=== PATIENT | female | born 1945 | race Caucasian/White ===

== ENCOUNTER 2018-12-08 16:27 | Inpatient (IN) | payer MEDICARE, SELFPAY ==
[2018-12-08 16:47] VITALS: BP 161/72; PULSE 87; RESP 16; TEMP 37; O2SAT 96; BMI 42.5
[2018-12-08 16:52] VITALS: BMI 42.7
--- NOTE | 2018-12-08 17:08 | PCM.CONS.GEN ---
Problem List (1) Hyperlipidemia Status: Chronic (2) Type 2 diabetes mellitus Status: Chronic (3) Status post coronary artery bypass graft Status: Chronic (4) CAD (coronary artery disease) Status: Chronic (5) Hypertension Status: Chronic Reason for Consult Date of Consultation: 12/08/18 Reason for Consultation: Medical management. History of Present Illness: The patient is a 73 year old F with past medical history as mentioned above admitted to the inpatient rehabilitation unit after she suffered acute traumatic left femur fracture and underwent open reduction internal fixation and I am seeing this patient in consultation for medical management. Patient sustained acute traumatic left femur fracture due to mechanical fall and she underwent open reduction and internal fixation on December 03, 2018 and subsequently, she was admitted to the inpatient rehabilitation unit for physical and occupational therapy. At this time, her left thigh and left hip pain is manageable. She denies any chest pain or shortness of breath. She denies any other significant symptoms. She has history of type 2 diabetes mellitus which seems to be under control with insulin and metformin. She has history of CAD status post CABG long time ago and she has been stable on aspirin, statins, beta-blockers and SUDHAKAR inhibitors. She has a history of hyperlipidemia and she has been on Lipitor. At this time, her blood pressure slightly elevated, other vital signs are stable. Past Medical History Past Medical History (Chronic Problems): Chronic Problems Hyperlipidemia (Chronic) Type 2 diabetes mellitus (Chronic) Status post coronary artery bypass graft (Chronic) CAD (coronary artery disease) (Chronic) Hypertension (Chronic) Allergies No Known Allergies Allergy (Verified 12/08/18 16:59) Home Medications: Ambulatory Orders Medication Instructions Recorded Aspirin E.C. 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 Dyspnea, Syncope Respiratory: Denies: Cough, Pleuritic Pain, Shortness of Breath, Sputum production, Wheezing Gastrointestinal: Denies: Abdominal Pain, Constipation, Nausea, Vomiting Genitourinary: Denies: Dysuria, Frequency, Hematuria Musculoskeletal: Reports: Leg Pain, - - Left thigh pain.. Denies: Arm Pain, Back Pain Skin: Reports: Dryness, Rash Neurological: Denies: Balance problems, Double vision, Change in Speech, Slurred speech, Confusion, Headaches, Numbness Psychiatric: Denies: Anxiety, Depression Endocrine: Denies: Change in Body Habitus, Polydipsia - Physical Exam General: Alert, Oriented x3, Cooperative, No apparent distress HEENT: Atraumatic, PERRLA, EOMI, Normocephalic Oral: Moist Mucosa, No Gingival or Mucosal Lesions/ Ulcerations Neck: Supple, No JVD, Negative Carotid Bruits, Trachea Midline, Thyroid Normal Size and Texture Lungs: Clear to auscultation, Normal air movement, No rhonchi, No wheeze, No rales Cardiovascular: Regular rate, Regular Rhythm, Normal S1, Normal S2, PMI Normal Abdomen: Bowel Sounds Present, Soft, Non Tender, Non-Distended, No Hepato-splenomegaly, Obese Extremities: No clubbing, No cyanosis, No edema Skin: No rashes, No breakdown, Incision Lymphatic: No Cervical, Supraclavicular, or Inguinal Adenopathy Neurological: Cranial nerves II-XII grossly intact, Motor Exam 5/5 strength throughout Psych/Mental Status: Normal Affect, Appropriate, Alert and oriented to time, place, person, mood and affect Weight: 241 lb Body Mass Index (BMI) 42.7 Assessment/Plan This is a 73 years old female patient admitted to the inpatient rehabilitation unit after she suffered acute traumatic left femur fracture status post open reduction internal fixation and I am seeing this patient in consultation for medical management. #1 acute traumatic left femur fracture: Status post open reduction and internal fixation that was done on December 03, 2018. At this time, her left thigh and left hip pain is manageable. She is on Sumpter PRN for pain. Her vital signs are stable. Plan for PT OT according to rehab team. #2 CAD status post CABG: Stable, no acute issues. Continue aspirin, statins, metoprolol and lisinopril. #3 type 2 diabetes mellitus: ADA diet, Accu-Cheks, insulin sliding scale, continue home doses of Lantus insulin and metformin. #4 hypertension: Blood pressure slightly elevated, plan to monitor, continue lisinopril and metoprolol. #5 hyperlipidemia: Continue statins. #6 DVT prophylaxis: Subcu Lovenox. This note was generated with [employer] dictation software. It may contain incorrect words, spelling, and punctuation that were not noted in checking the note before signing. Code Visit Inpatient E&M: 95251 Init Hosp L2
[2018-12-08 17:18] VITALS: BMI 42.7
[2018-12-08 17:45] LABS: Bedside Glucose 160 mg/dL (70-110)
[2018-12-08] MEDS: Pantoprazole Sodium 20 MG Tablet PO (19:23)
[2018-12-08 19:25] VITALS: BP 156/72; PULSE 74; RESP 16; TEMP 36.6; O2SAT 96
--- NOTE | 2018-12-08 19:32 | PCM.HP.COS ---
History of Present Illness Date of Admission: 12/08/18 Chief Complaint: Debility secondary to s/p left femur ORIF The patient is a 73 year old F with a H hypertension, diabetes, hyperlipidemia, GERD, depression, diabetes type 2, CAD, morbid obesity admitted to inpatient rehab on December 08, 2018 for debility secondary to status post left femur ORIF, for greater of 3 hours of therapy daily with a goal of returning back home at or near her prior level of functional dependence. On December 01, 2018 patient fell in her kitchen while putting the dishes away, patient did not hit head or no LOC. She was admitted to [facility] x-ray results of the left femur and knee demonstrated a community distal femur fracture extending from the diaphysis down to the metaphyseal region and the CT of the left knee re-demonstrates comminuted distal femur fracture, there does not appear to be an intra-articular extension. Prior to surgery cardiology was consulted due to patient's known coronary artery disease status post CABG in 1996. An EKG was done and showed an evidence of an inferior posterior RI, likely old. Troponin level and a repeat EKG was completed which did not show any dynamic changes. Patient was cleared for surgery and on December 04, 2018 Dr. Ruggiero performed open treatment left supracondylar femur fracture with plate and screw fixation. Post-op patient became nauseated and vomiting, anti-emetics and bland diet was ordered an x-ray of abdomen 2 views ordered, impression: findings are most compatible with mildly dynamic ileus and on December 07, 2018 chest x-ray 1 view ordered impression: no acute radiographic findings. Patient lives in a 1 level first-floor set up apartment with spouse and was independent with driving, mobility and ADLs prior to her surgery. Past Medical History Past Medical History (Chronic Problems): Chronic Problems (Last Updated 12/08/18 @ 20:25 by Yvrose Richards NP-C) Hypertension (Chronic) CAD (coronary artery disease) (Chronic) Status post coronary artery bypass graft (Chronic) Type 2 diabetes mellitus (Chronic) Hyperlipidemia (Chronic) GERD (gastroesophageal reflux disease) (Chronic) Morbid obesity with body mass index (BMI) of 40.0 to 44.9 in adult (Chronic) Depression (Chronic) Hx of CABG (Chronic) 1996 Medical History: Medical History (Last Updated 12/08/18 @ 20:16 by WILEY Ivey) Cataract (lens) fragments in eye following cataract surgery, bilateral H59.023 Allergies No Known Allergies Allergy (Verified 12/08/18 16:59) Home Medications: Ambulatory Orders Medication Instructions Recorded Aspirin E.C. [Ecotrin] 81 mg PO DAILY@0800 12/08/18 Atorvastatin Calcium [Lipitor] 40 mg PO QHS 12/08/18 Citalopram [Celexa] 40 mg PO DAILY 12/08/18 Insulin Glargine,Hum.rec.anlog 20 unit SQ QHS 12/08/18 [Toujeo Solostar] Lisinopril 5 mg PO DAILY 12/08/18 Metformin(XR) [Glucophage Xr] 2,000 mg PO QHS 12/08/18 Metoprolol(XL)Succ [Toprol Xl 25 mg PO DAILY 12/08/18 (Beta Mally)] Polyethylene Glycol 3350 [Miralax] 17 gm PO DAILY 12/08/18 Surgical History: Surgical History (Last Updated 12/08/18 @ 20:25 by WILEY Ivey) Hx of CABG (Chronic) Z95.1 1996 History of lumpectomy of left breast Z98.890 Surgical History: cataract, coronary bypass surgery - 1996, - - left breast biopsy, Left femur ORIF Psychiatric History: Depression 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 Denies: Abdominal Pain, Constipation Genitourinary: Denies: Dysuria, Frequency, Hesitancy Musculoskeletal: Reports: Joint stiffness - Left leg, Joint swelling, Joint Tenderness Neurological: Denies: Numbness, Tingling, Focal weakness Psychiatric: Reports: Depression - denies thoughts or feeling of suicidal ideations, nor a plan Endocrine: Denies: Change in Body Habitus, Heat/ Cold Intolerance Hematologic/ Lymphatic: Denies: Easy Bruising, Easy Bleeding VTE Information - Inpt Only VTE Present on Admission: No VTE Mechan Device Prophylaxis: SCD's, Knee High NOLBERTO Hose - RLE only d/t brace and acewrap to LLE VTE Pharm Prophylaxis ordered?: Yes - Physical Exam General: Alert, Oriented x3, Cooperative HEENT: Atraumatic, PERRLA Oral: Moist Mucosa Neck: Supple, No JVD Lungs: Clear to auscultation, Normal air movement Cardiovascular: Regular rate, Regular Rhythm Abdomen: Bowel Sounds Present, Soft, Non Tender, Obese Extremities: No clubbing, No cyanosis, No edema, Capillary Refill Less than 3 Seconds Skin: Incision - Left upper leg, incisions covered with DSD and no active drng or redness noted Musculoskeletal: Tenderness - Left upper extremity s/p left femur ORIF Neurological: Cranial nerves II-XII grossly intact, Deep Tendon Reflexes 2+/4 and Symmetrical, Neuro grossly intact Psych/Mental Status: Normal Affect, Appropriate, Alert and oriented to time, place, person, mood and affect Vital Signs Temp Pulse Resp BP Pulse Ox 98 F 74 16 156/72 H 96 12/08/18 19:25 12/08/18 19:25 12/08/18 19:25 12/08/18 19:25 12/08/18 19:25 Oxygen Delivery Method Room Air Weight: 109.316 kg Body Mass Index (BMI) 42.7 POC Glucose 12/08/18 17:40 POC Glucose 160 H Assessment/Plan The patient is a 73 year old F with a H hypertension, diabetes, hyperlipidemia, GERD, depression, diabetes type 2, CAD, morbid obesity admitted to inpatient rehab on December 08, 2018 for debility secondary to status post left femur ORIF, for greater of 3 hours of therapy daily with a goal of returning back home at or near her prior level of functional dependence. On December 01, 2018 patient fell in her kitchen while putting the dishes away, patient did not hit head or no LOC. She was admitted to [facility] x-ray results of the left femur and knee demonstrated a community distal femur fracture extending from the diaphysis down to the metaphyseal region and the CT of the left knee re-demonstrates comminuted distal femur fracture, there does not appear to be an intra-articular extension. Prior to surgery cardiology was consulted due to patient's known coronary artery disease status post CABG in 1996. An EKG was done and showed an evidence of an inferior posterior RI, likely old. Troponin level and a repeat EKG was completed which did not show any dynamic changes. Patient was cleared for surgery and on December 04, 2018 Dr. Ruggiero performed open treatment left supracondylar femur fracture with plate and screw fixation. Post-op patient became nauseated and vomiting, anti-emetics and bland diet was ordered an x-ray of abdomen 2 views ordered, impression: findings are most compatible with mildly dynamic ileus and on December 07, 2018 chest x-ray 1 view ordered impression: no acute radiographic findings. Patient lives in a 1 level first-floor set up apartment with spouse and was independent with driving, mobility and ADLs prior to her surgery. Plan - PT for mobility - OT for ADLs - Bowel protocol - Analgesics as needed - Fall precautions - DVT prophylaxis lovenox 30 mg SQ daily as directed by ortho, knee high teds and SCDs to RLE only d/t LLE sumanth wrap and brace - S/P left femur ORIF change drsg to incision daily with DSD and prn, ice prn, PWB 25 % ROM 0-60 degrees in bed with knee immobilizer off, wear knee immobilizer for transfer and when out of bed. - HTN on metoprolol, lisinopril - GERD on protonix 20 mg - DM type 2 on metformin, levemir, and humalog S.C., monitor accu-checks AC & HS - Depression on celexa - Hyperlipidemia on lipitor - CAD s/p CABG on aspirin, metoprolol and lisinopril - Nausea: zofran prn (EKG prior to hospitalization and was given prior to this admission with celexa) - Further medical management per hospitalist recommendation, hospitalist consult - F/U with PCP and Orthopedics
--- NOTE | 2018-12-08 19:36 | HP.PCM.COS_ITS ---
History of Present Illness Date of Admission: 12/08/18 Chief Complaint: Debility secondary to s/p left femur ORIF The patient is a 73 year old F with a H hypertension, diabetes, hyperlipidemia, GERD, depression, diabetes type 2, CAD, morbid obesity admitted to inpatient rehab on December 08, 2018 for debility secondary to status post left femur ORIF, for greater of 3 hours of therapy daily with a goal of returning back home at or near her prior level of functional dependence. On December 01, 2018 patient fell in her kitchen while putting the dishes away, patient did not hit head or no LOC. She was admitted to [facility] x-ray results of the left femur and knee demonstrated a community distal femur fracture extending from the diaphysis down to the metaphyseal region and the CT of the left knee re-demonstrates comminuted distal femur fracture, there does not appear to be an intra-articular extension. Prior to surgery cardiology was consulted due to patient's known coronary artery disease status post CABG in 1996. An EKG was done and showed an evidence of an inferior posterior NV, santana sarabia Troponin level and a repeat EKG was completed which did not show any dynamic changes. Patient was cleared for surgery and on December 04, 2018 Dr. Ruggiero performed open treatment left supracondylar femur fracture with plate and screw fixation. Post-op patient became nauseated and vomiting, anti-emetics and bland diet was ordered an x-ray of abdomen 2 views ordered, impression: findings are most compatible with mildly dynamic ileus and on December 07, 2018 chest x-ray 1 view ordered impression: no acute radiographic findings. Patient lives in a 1 level first-floor set up apartment with spouse and was independent with driving, mobility and ADLs prior to her surgery. Past Medical History Past Medical History (Chronic Problems): Chronic Problems (Last Updated 12/08/18 @ 20:25 by Yvrose Richards NP-Gladys) Hypertension (Chronic) CAD (coronary artery disease) (Chronic) Status post coronary artery bypass graft (Chronic) Type 2 diabetes mellitus (Chronic) Hyperlipidemia (Chronic) GERD (gastroesophageal reflux disease) (Chronic) Morbid obesity with body mass index (BMI) of 40.0 to 44.9 in adult (Chronic) Depression (Chronic) Hx of CABG (Chronic) 1996 Medical History: Medical History (Last Updated 12/08/18 @ 20:16 by WILEY Ivey) Cataract (lens) fragments in eye following cataract surgery, bilateral H59.023 Allergies No Known Allergies Allergy (Verified 12/08/18 16:59) Home Medications: Ambulatory Orders Medication Instructions Recorded Aspirin E.C. [Ecotrin] 81 mg PO DAILY@0800 12/08/18 Atorvastatin Calcium [Lipitor] 40 mg PO QHS 12/08/18 Citalopram [Celexa] 40 mg PO DAILY 12/08/18 Insulin Glargine,Hum.rec.anlog 20 unit SQ QHS 12/08/18 [Toujeo Solostar] Lisinopril 5 mg PO DAILY 12/08/18 Metformin(XR) [Glucophage Xr] 2,000 mg PO QHS 12/08/18 Metoprolol(XL)Succ [Toprol Xl 25 mg PO DAILY 12/08/18 (Beta Mally)] Polyethylene Glycol 3350 [Miralax] 17 gm PO DAILY 12/08/18 Surgical History: Surgical History (Last Updated 12/08/18 @ 20:25 by WILEY Ivey) Hx of CABG (Chronic) Z95.1 1996 History of lumpectomy of left breast Z98.890 Surgical History: cataract, coronary bypass surgery - 1996, - - left breast biopsy, Left femur ORIF Psychiatric History: Depression 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 Denies: Abdominal Pain, Constipation Genitourinary: Denies: Dysuria, Frequency, Hesitancy Musculoskeletal: Reports: Joint stiffness - Left leg, Joint swelling, Joint Tenderness Neurological: Denies: Numbness, Tingling, Focal weakness Psychiatric: Reports: Depression - denies thoughts or feeling of suicidal ideations, nor a plan Endocrine: Denies: Change in Body Habitus, Heat/ Cold Intolerance Hematologic/ Lymphatic: Denies: Easy Bruising, Easy Bleeding VTE Information - Inpt Only VTE Present on Admission: No VTE Mechan Device Prophylaxis: SCD's, Knee High NOLBERTO Hose - RLE only d/t brace and acewrap to LLE VTE Pharm Prophylaxis ordered?: Yes - Physical Exam General: Alert, Oriented x3, Cooperative HEENT: Atraumatic, PERRLA Oral: Moist Mucosa Neck: Supple, No JVD Lungs: Clear to auscultation, Normal air movement Cardiovascular: Regular rate, Regular Rhythm Abdomen: Bowel Sounds Present, Soft, Non Tender, Obese Extremities: No clubbing, No cyanosis, No edema, Capillary Refill Less than 3 Seconds Skin: Incision - Left upper leg, incisions covered with DSD and no active drng or redness noted Musculoskeletal: Tenderness - Left upper extremity s/p left femur ORIF Neurological: Cranial nerves II-XII grossly intact, Deep Tendon Reflexes 2+/4 and Symmetrical, Neuro grossly intact Psych/Mental Status: Normal Affect, Appropriate, Alert and oriented to time, place, person, mood and affect Vital Signs Temp Pulse Resp BP Pulse Ox 98 F 74 16 156/72 H 96 12/08/18 19:25 12/08/18 19:25 12/08/18 19:25 12/08/18 19:25 12/08/18 19:25 Oxygen Delivery Method Room Air Weight: 109.316 kg Body Mass Index (BMI) 42.7 POC Glucose 12/08/18 17:40 POC Glucose 160 H Assessment/Plan The patient is a 73 year old F with a H hypertension, diabetes, hyperlipidemia, GERD, depression, diabetes type 2, CAD, morbid obesity admitted to inpatient rehab on December 08, 2018 for debility secondary to status post left femur ORIF, for greater of 3 hours of therapy daily with a goal of returning back home at or near her prior level of functional dependence. On December 01, 2018 patient fell in her kitchen while putting the dishes away, patient did not hit head or no LOC. She was admitted to [facility] x-ray results of the left femur and knee demonstrated a community distal femur fracture extending from the diaphysis down to the metaphyseal region and the CT of the left knee re-demonstrates comminuted distal femur fracture, there does not appear to be an intra-articular extension. Prior to surgery cardiology was consulted due to patient's known coronary artery disease status post CABG in 1996. An EKG was done and showed an evidence of an inferior posterior NV, likely old. Troponin level and a repeat EKG was completed which did not show any dynamic changes. Patient was cleared for surgery and on December 04, 2018 Dr. Ruggiero performed open treatment left supracondylar femur fracture with plate and screw fixation. Post-op patient became nauseated and vomiting, anti-emetics and bland diet was ordered an x-ray of abdomen 2 views ordered, impression: findings are most compatible with mildly dynamic ileus and on December 07, 2018 chest x-ray 1 view ordered impression: no acute radiographic findings. Patient lives in a 1 level first-floor set up apartment with spouse and was independent with driving, mobility and ADLs prior to her surgery. Plan - PT for mobility - OT for ADLs - Bowel protocol - Analgesics as needed - Fall precautions - DVT prophylaxis lovenox 30 mg SQ daily as directed by ortho, knee high teds and SCDs to RLE only d/t LLE sumanth wrap and brace - S/P left femur ORIF change drsg to incision daily with DSD and prn, ice prn, PWB 25 % ROM 0-60 degrees in bed with knee immobilizer off, wear knee immobilizer for transfer and when out of bed. - HTN on metoprolol, lisinopril - GERD on protonix 20 mg - DM type 2 on metformin, levemir, and humalog S.C., monitor accu-checks AC & HS - Depression on celexa - Hyperlipidemia on lipitor - CAD s/p CABG on aspirin, metoprolol and lisinopril - Nausea: zofran prn (EKG prior to hospitalization and was given prior to this admission with celexa) - Further medical management per hospitalist recommendation, hospitalist consult - F/U with PCP and Orthopedics
[2018-12-08 21:06] LABS: Bedside Glucose 185 mg/dL (70-110)
[2018-12-08] MEDS: Atorvastatin Calcium 40 MG Tablet PO (22:00)
[2018-12-08] MEDS: Ondansetron ODT 4 MG Tablet PO (22:29)
[2018-12-09] MEDS: Enoxaparin 30 MG/0.3 ML Syringe SC (06:12)
[2018-12-09 07:00] VITALS: BP 120/74; PULSE 98; RESP 18; TEMP 36.8; O2SAT 94
[2018-12-09 07:02] LABS: Absolute Lymphocyte Count 1.22 X10^3/ul (0.83-4.51); Absolute Neutrophil Count 7.9 X10^3/uL (2.0-7.7); Basophil# 0.03 X10^3/uL; Basophil% 0.3 % (0-1); Eosinophil# 0.36 X10^3/uL; Eosinophils% 3.3 % (0-5); Hematocrit 32.5 % (37-47); Hemoglobin 10.6 g/dl (12.0-15.0); Lymphocyte # 1.22 X10^3/ul (4.0); Mean Corp Hgb Conc 32.6 g/gl (32-36); Mean Corpuscular Hgb 29.9 pg (27.0-32.0); Mean Corpuscular Volume 91.5 fL (81-99); Mean Platelet Vol. 9.6 fl (6.2-12.0); Monocyte# 1.35 X10^3/uL; Monocyte% 12.2 % (0-10); Neutrophil # 7.94 X10^3/uL (2.7-7.7); Neutrophil % 71.8 % (47-70); Platelet Count 281 K/mm3 (150-450); RBC Distribution Width CV 14.5 % (11.6-14.6); RBC Distribution Width SD 47.6 fl (35.1-43.9); Red Blood Count 3.55 M/mm3 (4.2-5.4); White Blood Count 11.1 K/mm3 (4.4-11.0)
[2018-12-09 07:05] LABS: POSITIVE COUNT NO; POSITIVE DIFFERENTIAL NO; POSITIVE MORPHOLOGY NO
[2018-12-09 07:14] LABS: BUN 9 mg/dL (7-18); Creatinine, Serum 0.76 mg/dL (0.55-1.02); Estimated Creatinine Clearance 42.07 ml/min; Glucose 171 mg/dL (74-106)
[2018-12-09 07:15] LABS: ALB/GLOB Ratio 0.8 RATIO (0.9-2.4); AST(SGOT) 29 U/L (15-37); Alanine Aminotransfer ALT/SGPT 27 U/L (13-56); Albumin, Serum 2.6 g/dL (3.2-5.0); Alkaline Phosphatase 66 U/L (45-117); Anion Gap 8 (5-15); BUN/Creat Ratio 11.9 RATIO (10-20); Calcium,Total 8.4 mg/dL (8.5-10.1); Chloride 104 mmol/L (98-107); EST Glomerular Filtration Rate 80 mL/min (>60); Est Glom Filt Rate - Afr Amer 96 mL/min (>60); Globulin 3.4 g/dL (2.2-4.2); Potassium 3.2 mmol/L (3.5-5.1); Sodium Level 141 mmol/L (136-145)
[2018-12-09 08:22] VITALS: BP 120/74; PULSE 98
[2018-12-09] MEDS: Metoprolol(XL)Succ 25 MG Tablet PO (08:22)
[2018-12-09] MEDS: Insulin Lispro 100 UNIT/ML INSULN.PEN SC ×4 (08:22→19:58)
[2018-12-09] MEDS: Citalopram 40 MG TABLET PO (08:22)
[2018-12-09] MEDS: Lisinopril 5 MG Tablet PO (08:22)
[2018-12-09] MEDS: Aspirin E.C. 81 MG Tablet PO (08:22)
[2018-12-09] MEDS: Pantoprazole Sodium 20 MG Tablet PO (08:23)
[2018-12-09 09:41] LABS: Bedside Glucose 165 mg/dL (70-110)
[2018-12-09 09:41] LABS: Bedside Glucose 174 mg/dL (70-110)
[2018-12-09 12:15] LABS: Bedside Glucose 239 mg/dL (70-110)
--- NOTE | 2018-12-09 12:18 | PCM.PN.HOSP ---
Subjective: Patient was seen and examined. She has diarrhea, about 4x, no fever or chills. Objective: Physical Exam General: Alert, Oriented x3, Cooperative, No apparent distress, morbidly obese HEENT: Atraumatic, PERRLA, EOMI, Normocephalic Oral: Moist Mucosa, No Gingival or Mucosal Lesions/ Ulcerations Neck: Supple, No JVD, Negative Carotid Bruits, Trachea Midline, Thyroid Normal Size and Texture Lungs: Clear to auscultation, Normal air movement, No rhonchi, No wheeze, No rales Cardiovascular: Regular rate, Regular Rhythm, Normal S1, Normal S2, PMI Normal Abdomen: Bowel Sounds Present, Soft, Non Tender, Non-Distended, No Hepato-splenomegaly, Obese Extremities: No clubbing, No cyanosis, No edema Skin: No rashes, No breakdown, Incision Lymphatic: No Cervical, Supraclavicular, or Inguinal Adenopathy Neurological: Cranial nerves II-XII grossly intact, Motor Exam 5/5 strength throughout Psych/Mental Status: Normal Affect, Appropriate, Alert and oriented to time, place, person, mood and affect Vitals/I&O's: Vital Signs Temp Pulse Resp BP Pulse Ox 98.2 F 98 18 120/74 94 12/09/18 07:00 12/09/18 08:22 12/09/18 07:00 12/09/18 08:22 12/09/18 07:00 Oxygen Delivery Method Room Air Weight: 109.316 kg Body Mass Index (BMI) 42.7 Intake and Output for Last 24 Hours 12/07/18 12/08/18 12/09/18 23:59 23:59 23:59 Intake Total 360 / 360 Balance 360 / 360 Laboratory Results 12/08/18 17:40: POC Glucose 160 H 12/08/18 20:56: POC Glucose 185 H 12/09/18 01:12: POC Glucose 165 H 12/09/18 06:31: POC Glucose 174 H 12/09/18 06:40: WBC 11.1 H, RBC 3.55 L, Hgb 10.6 L, Hct 32.5 L, MCV 91.5, MCH 29.9, MCHC 32.6, RDW 14.5, RDW Differential 47.6 H, Plt Count 281, MPV 9.6, Immature Gran % (Auto) 1.400 H, Neut % (Auto) 71.8 H, Lymph % (Auto) 11.0 L, [place] % (Auto) 12.2 H, Eos % (Auto) 3.3, Baso % (Auto) 0.3, Absolute Neuts (auto) 7.9 H, Absolute Lymphs (auto) 1.22, Total Counted Not Reportable 12/09/18 06:40: Sodium 141, Potassium 3.2 L, Chloride 104, Carbon Dioxide 29.0, Anion Gap 8, BUN 9, Creatinine 0.76, Estim Creat Clear Calc 42.07, Est GFR (MDRD) Af Amer 96, Est GFR (MDRD) Non-Af 80, BUN/Creatinine Ratio 11.9, Glucose 171 H, Calcium 8.4 L, Total Bilirubin 1.20 H, AST 29, ALT 27, Alkaline Phosphatase 66, Total Protein 6.0 L, Albumin 2.6 L, Globulin 3.4, Albumin/Globulin Ratio 0.8 L 12/09/18 12:08: POC Glucose 239 H Current Medications Acetaminophen (Tylenol) 650 mg PO Q6H PRN PRN PRN Reason: Mild Pain (0-3/10)/Headache Hydrocodone Bitart/Acetaminophen ([place] 5mg-325mg) 1 - 2 tablet PO Q6H PRN PRN PRN Reason: MOD-SEVERE PAIN (4-10/10) Aspirin (Ecotrin) 81 mg PO DAILY@0800 [facility] Last Admin: 12/09/18 08:22 Dose: 81 mg Atorvastatin Calcium (Lipitor) 40 mg PO QHS [facility] Last Admin: 12/08/18 22:00 Dose: 40 mg Bisacodyl (Dulcolax) 10 mg RECTAL .PRN X 1 PRN PRN Reason: Constipation Citalopram Hydrobromide (Celexa) 40 mg PO DAILY [facility] Last Admin: 12/09/18 08:22 Dose: 40 mg Enoxaparin Sodium (Lovenox) 30 mg SC DAILY@0600 [facility] Last Admin: 12/09/18 06:12 Dose: 30 mg Insulin Glargine (Lantus (Bk)) 20 units [facility] Last Admin: 12/08/18 22:29 Dose: 20 u Insulin Human Lispro (Humalog Kwikpen (Bk)) 0 unit SC [facility]; Protocol Last Admin: 12/09/18 08:22 Dose: 1 u Lisinopril (Zestril) 5 mg PO DAILY [facility] Last Admin: 12/09/18 08:22 Dose: 5 mg Lorazepam (Ativan) 0.5 mg PO QHS PRN PRN PRN Reason: Insomnia Magnesium Hydroxide (Milk Of Magnesia) 30 ml PO .PRN X 1 PRN PRN Reason: Constipation Metformin HCl (Glucophage Xr) 2,000 mg PO QHS [facility] Last Admin: 12/08/18 22:29 Dose: 2,000 mg Metoprolol Succinate (Toprol Xl (Beta Mally)) 25 mg PO DAILY [facility] Last Admin: 12/09/18 08:22 Dose: 25 mg Ondansetron HCl (Zofran Odt) 4 mg PO Q8H PRN PRN PRN Reason: nausea and vomitting Last Admin: 12/08/18 22:29 Dose: 4 mg Pantoprazole Sodium (Protonix) 20 mg PO DAILY [facility] Last Admin: 12/09/18 08:23 Dose: 20 mg Polyethylene Glycol (Miralax) 17 gm PO DAILY [facility] Last Admin: 12/09/18 08:21 Dose: Not Given Senna/Docusate Sodium (Senokot-S, Gregoria-Colace) 2 tablet PO BID [facility] Last Admin: 12/09/18 10:05 Dose: Not Given Medical Necessity - Tobacco Use Smoking Status: Never smoker Assessment/Plan This is a 73 years old female patient admitted to the inpatient rehabilitation unit after she suffered acute traumatic left femur fracture status post open reduction internal fixation admitted for acute rehab. 1. Acute diarrhea, need to rule out c. diff, will hold metformin 2. Hypokalemia, replaced 3. Acute traumatic left femur fracture, status post open reduction and internal fixation, therapy ongoing 4. CAD status post CABG: Stable, no acute issues. Continue aspirin, statins, metoprolol and lisinopril. 5. Type 2 diabetes mellitus, BS slightly uncontrolled, on ADA diet, Accu-Cheks, insulin sliding scale, continue home doses of Lantus insulin. Will hold metformin 6. Hypertension, controlled, on lisinopril and metoprolol. 7. Hyperlipidemia, statins. 8. DVT prophylaxis - Lovenox SC Code Visit Inpatient E&M: [id number] [facility] L2
[2018-12-09 14:28] LABS: Hemoglobin A1c 6.8 % (4.2-6.3)
[2018-12-09 16:51] LABS: Bedside Glucose 159 mg/dL (70-110)
[2018-12-09] MEDS: Atorvastatin Calcium 40 MG Tablet PO (19:59)
[2018-12-09 20:04] VITALS: BP 130/66; PULSE 94; RESP 18; TEMP 36.9; O2SAT 92
[2018-12-09 20:16] LABS: Bedside Glucose 181 mg/dL (70-110)
[2018-12-10] MEDS: Enoxaparin 30 MG/0.3 ML Syringe SC (05:45)
[2018-12-10 06:26] LABS: Bedside Glucose 183 mg/dL (70-110)
[2018-12-10 07:00] VITALS: BP 120/70; PULSE 89; RESP 18; TEMP 36.7; O2SAT 94
[2018-12-10 08:21] VITALS: BP 120/70; PULSE 89
[2018-12-10] MEDS: Pantoprazole Sodium 20 MG Tablet PO (08:21)
[2018-12-10] MEDS: Insulin Lispro 100 UNIT/ML INSULN.PEN SC ×4 (08:21→20:22)
[2018-12-10] MEDS: Citalopram 40 MG TABLET PO (08:21)
[2018-12-10] MEDS: Lisinopril 5 MG Tablet PO (08:21)
[2018-12-10] MEDS: Metoprolol(XL)Succ 25 MG Tablet PO (08:21)
[2018-12-10] MEDS: Aspirin E.C. 81 MG Tablet PO (08:21)
[2018-12-10 11:55] LABS: Bedside Glucose 291 mg/dL (70-110)
--- NOTE | 2018-12-10 12:48 | PCM.PN.HOSP ---
Subjective: Patient was seen and examined. No more diarrhea. Blood sugar slightly uncontrolled. Pain is controlled. Denies any fever or chills. Therapy is going well Objective: Physical Exam General: Alert, Oriented x3, Cooperative, No apparent distress, morbidly obese HEENT: Atraumatic, PERRLA, EOMI, Normocephalic Oral: Moist Mucosa, No Gingival or Mucosal Lesions/ Ulcerations Neck: Supple, No JVD, Negative Carotid Bruits, Trachea Midline Lungs: Clear to auscultation Cardiovascular: Regular rate, Regular Rhythm, Normal S1, Normal S2, PMI Normal Abdomen: Bowel Sounds Present, Soft, Non Tender, Non-Distended, No Hepato-splenomegaly, Obese Extremities: No clubbing, No cyanosis, Karlos wrap to left lower extremity, bruise over the left lower thigh, dressing intact over left knee Skin: see under extremity Lymphatic: No Cervical, Supraclavicular, or Inguinal Adenopathy Neurological: Cranial nerves II-XII grossly intact, Motor Exam 5/5 strength throughout Psych/Mental Status: Normal Affect, Appropriate, Alert and oriented to time, place, person, mood and affect Vitals/I&O's: Vital Signs Temp Pulse Resp BP Pulse Ox 98.0 F 89 18 120/70 94 12/10/18 07:00 12/10/18 08:21 12/10/18 07:00 12/10/18 08:21 12/10/18 07:00 Oxygen Delivery Method Room Air Weight: 109.316 kg Body Mass Index (BMI) 42.7 Intake and Output for Last 24 Hours 12/08/18 12/09/18 12/10/18 23:59 23:59 23:59 Intake Total 840 / 840 720 / 720 Balance 840 / 840 720 / 720 Microbiology Past 72 Hours 12/09/18 16:40 Stool C. difficile DNA Amplification - Final Laboratory Results 12/09/18 06:40: Hemoglobin A1c 6.8 H 12/09/18 16:42: POC Glucose 159 H 12/09/18 19:57: POC Glucose 181 H 12/10/18 06:18: POC Glucose 183 H 12/10/18 11:47: POC Glucose 291 H Current Medications Acetaminophen (Tylenol) 650 mg PO Q6H PRN PRN PRN Reason: Mild Pain (0-3/10)/Headache Hydrocodone Bitart/Acetaminophen ([place] 5mg-325mg) 1 - 2 tablet PO Q6H PRN PRN PRN Reason: MOD-SEVERE PAIN (4-1010) Aspirin (Ecotrin) 81 mg PO DAILY@0800 [facility] Last Admin: 12/10/18 08:21 Dose: 81 mg Atorvastatin Calcium (Lipitor) 40 mg PO QHS [facility] Last Admin: 12/09/18 19:59 Dose: 40 mg Bisacodyl (Dulcolax) 10 mg RECTAL .PRN X 1 PRN PRN Reason: Constipation Citalopram Hydrobromide (Celexa) 40 mg PO DAILY [facility] Last Admin: 12/10/18 08:21 Dose: 40 mg Enoxaparin Sodium (Lovenox) 30 mg SC DAILY@0600 [facility] Last Admin: 12/10/18 05:45 Dose: 30 mg Insulin Glargine (Lantus (Bkc)) 20 units SC QHS [facility] Last Admin: 12/09/18 19:58 Dose: 20 u Insulin Human Lispro (Humalog Kwikpen (Bkc)) 0 unit SC [facility]; Protocol Last Admin: 12/10/18 08:21 Dose: 2 u Lisinopril (Zestril) 5 mg PO DAILY [facility] Last Admin: 12/10/18 08:21 Dose: 5 mg Lorazepam (Ativan) 0.5 mg PO QHS PRN PRN PRN Reason: Insomnia Magnesium Hydroxide (Milk Of Magnesia) 30 ml PO .PRN X 1 PRN PRN Reason: Constipation Metformin HCl (Glucophage Xr) 2,000 mg PO QHS [facility] Last Admin: 12/09/18 13:54 Dose: Not Given Metoprolol Succinate (Toprol Xl (Beta Mally)) 25 mg PO DAILY [facility] Last Admin: 12/10/18 08:21 Dose: 25 mg Ondansetron HCl (Zofran Odt) 4 mg PO Q8H PRN PRN PRN Reason: nausea and vomitting Last Admin: 12/08/18 22:29 Dose: 4 mg Pantoprazole Sodium (Protonix) 20 mg PO DAILY [facility] Last Admin: 12/10/18 08:21 Dose: 20 mg Polyethylene Glycol (Miralax) 17 gm PO DAILY [facility] Last Admin: 12/10/18 06:59 Dose: Not Given Senna/Docusate Sodium (Senokot-S, Gregoria-Colace) 2 tablet PO BID [facility] Last Admin: 12/10/18 06:59 Dose: Not Given Medical Necessity - Tobacco Use Smoking Status: Never smoker Assessment/Plan This is a 73 years old female patient admitted to the inpatient rehabilitation unit after she suffered acute traumatic left femur fracture status post open reduction internal fixation admitted for acute rehab. 1. Acute diarrhea, C. difficile ruled out, likely secondary to metformin side effect, will continue to monitor off metformin 2. Hypokalemia, resolved 3. Acute traumatic left femur fracture, status post open reduction and internal fixation, therapy ongoing 4. CAD status post CABG, on aspirin, statins, metoprolol and lisinopril. 5. Type 2 diabetes mellitus, BS slightly uncontrolled, on ADA diet, Accu-Cheks, insulin sliding scale, Increase Lantus to 24 units QHS, continue to hold metformin 6. Hypertension, controlled, on lisinopril and metoprolol. 7. Hyperlipidemia, statins. 8. DVT prophylaxis - Lovenox SC Code Visit Inpatient E&M: [id number] Subs Hosp L2
--- NOTE | 2018-12-10 13:04 | PCM.RU.PYE ---
Admission Information Status Changes from Prescreening?: No changes Identified Actual Problem List:: Falls, Skin Intergrity, Pain, ALteration in Cmfrt, Bowel, Incontinence, Alteration in Sleep, Mobility Impaired, Self Care Deficit, Diabetes, Hyperglycemia, Ineffect.D/C Plan r/t Psy Potential Problem List:: DVT, Bleeding, Infection, UTI, Aspiration, Falls, Skin Integrity, Depression Risk of Complications DVT: LMWH, NOLBERTO Hose, Sequential Compression Device Bleeding: Monitor Lab Values, Nursing to Teach Precautions for anti-coagulation therapy., Wound, if applicable, to be assessed every shift., Stroke patients assessed for lethargy or change in status. Infection: Clinical Staff to Monitor for S/S of infection:, S/S of infection include fever, redness, warmth, etc. Urinary Tract Infection: Monitor for frequency, burning, discomfort, or incontinence., Nursing will obtain urine sample for urinalysis and C&S when ordered. Aspiration: Clinical staff will monitor for coughing, drooling, congestion., Speech will evaluate swallowing and dsyphasia., Nursing will monitor patient swallowing during meals. Falls: Patient will be evaluated for Fall Precautions, Patient will be placed on Fall Precautions as indicated per protocol. Skin Breakdown: Nursing will assess skin daily using assessment tool., Nursing will place on Skin Breakdown Precautions as indicated. Pain: Clinical staff will assess patient's pain level per protocol., Medications will be given, if needed, and the pain level reassessed., Other methods: Massage, distraction, decrease stimulus, etc. used PRN. Plan of Care Patient requires physician specializing in physical medicine and rehab oversight to provide close medical supervision of rehab issues including: Pain Management, Sleep Problems, Bowel and Bladder, Medical and co-morbidity Management, DVT prophylaxis, Rehabilitation Leadership, Coordination of treatment team Patient needs Physical Therapy: For a minimum of 1 hour, At least 5 out of 7 days Patient needs Physical Therapy to improve:: Mobility, Mobility, Mobility, Strengthening, Transfers, Stretching, ROM, Endurance, Stairs, Gait, Balance Patient needs Occupational Therapy: For a minimum of 1 hour, At least 5 out of 7 days Patient needs Occupational Therapy to improve ADL's incl.: Eating, Grooming, Bathing, Dressing, Toileting, Toilet transfers, Community Reintegration, Higher functioning activities, Household tasks, Adaptive Equipment, Splinting, Other activities as determined Patient requires 28/02 Rehabilitation Nursing for: Pain Issues, Identifying and preventing risk factors, Monitoring and reporting current medical conditions, Assisting with ambulation, transfer, and all ADL's, Teaching patients about disease process and medications, Family teaching, Providing safe environment, Bowel and Bladder Issues, Skin integrity, Medication Management Patient needs Conference Services Director/ Case Management for: Discharge Planning, Arranging Home Equipment or Services, Family Interventions Patient needs Dietary and Nutrition Services for: Adequate Nutrition, Nutritional Supplements, Nutritional Education Goals Patient will remain: free from falls, or injury at time of discharge. Patient will perform bed mobility at: MOD I level of assist. Patient will complete transfers from bed to chair at: MOD I level of assist. Patient will ambulate: 100 feet, with MOD I assist, with LRD Patient will complete upper body dressing at: MOD I level of assist. Patient will complete lower body dressing at: MOD I level of assist. Patient will complete toileting at: MOD I level of assist. Patient will perform bathing at: MOD I level of assist. Patient will complete grooming at: MOD I level of assist. Patient will complete home management skills at: MOD I level of assist. Patient will achieve: 12 stairs, at MOD I assist Patient will have pain level of: of 3 or less Patient's skin will: remain intact, free from infection. Patient will receive: adequate nutrition. Discharge Planning Pt Prognosis for Sig. Practical Improv. w/in Reasonable Time: Good Anticipated D/C Destination: Home with Outpt Therapy Was Preadmission Assessment Accurate?: Yes
[2018-12-10 13:36] LABS: Anion Gap 5 (5-15); BUN 13 mg/dL (7-18); BUN/Creat Ratio 15.3 RATIO (10-20); Calcium,Total 8.5 mg/dL (8.5-10.1); Chloride 104 mmol/L (98-107); Creatinine, Serum 0.85 mg/dL (0.55-1.02); EST Glomerular Filtration Rate 70 mL/min (>60); Est Glom Filt Rate - Afr Amer 84 mL/min (>60); Estimated Creatinine Clearance 49.49 ml/min; Glucose 290 mg/dL (74-106); Potassium 3.5 mmol/L (3.5-5.1); Sodium Level 139 mmol/L (136-145)
[2018-12-10 13:43] VITALS: O2SAT 95
[2018-12-10 17:05] LABS: Bedside Glucose 238 mg/dL (70-110)
[2018-12-10 20:21] LABS: Bedside Glucose 195 mg/dL (70-110)
[2018-12-10] MEDS: Atorvastatin Calcium 40 MG Tablet PO (20:23)
[2018-12-10 20:41] VITALS: BP 139/73; PULSE 64; RESP 18; TEMP 36.6; O2SAT 95
[2018-12-10 21:06] LABS: Bedside Glucose 190 mg/dL (70-110)
[2018-12-11] MEDS: Enoxaparin 30 MG/0.3 ML Syringe SC (05:09)
[2018-12-11 06:45] LABS: Bedside Glucose 212 mg/dL (70-110)
[2018-12-11 06:46] VITALS: O2SAT 94
[2018-12-11 07:10] VITALS: BP 137/71; PULSE 93; RESP 18; TEMP 36.8; O2SAT 93
[2018-12-11] MEDS: Aspirin E.C. 81 MG Tablet PO (07:57)
[2018-12-11] MEDS: Citalopram 40 MG TABLET PO (07:57)
[2018-12-11] MEDS: Insulin Lispro 100 UNIT/ML INSULN.PEN SC ×4 (07:57→21:42)
[2018-12-11] MEDS: Lisinopril 5 MG Tablet PO (07:57)
[2018-12-11 07:58] VITALS: BP 137/71; PULSE 93
[2018-12-11] MEDS: Pantoprazole Sodium 20 MG Tablet PO (07:58)
[2018-12-11] MEDS: Metoprolol(XL)Succ 25 MG Tablet PO (07:58)
--- NOTE | 2018-12-11 11:06 | PCM.PN.NEU ---
Subjective: No issues overnight per nursing. Per nursing no further diarrhea and per hospitalist direction metformin on hold. Nursing reported excoriation under bilateral breasts and to groin area. Patient denies pain at this time and is tolerating therapy well. - Physical Exam General: Alert, Oriented x3, Cooperative HEENT: Atraumatic, PERRLA Oral: Moist Mucosa Neck: Supple, No JVD Lungs: Clear to auscultation, Normal air movement, No rhonchi Cardiovascular: Regular rate, Regular Rhythm Abdomen: Bowel Sounds Present, Soft, Non Tender, Obese Extremities: No clubbing, No cyanosis, Edema - mild to left upper thigh Skin: Incision - joe and DSD intact, no active drng or redness noted, Excoriated - Under bilateral breasts and groin Musculoskeletal: Tenderness - s/p left femur ORIF Neurological: Cranial nerves II-XII grossly intact, Deep Tendon Reflexes 2+/4 and Symmetrical, Neuro grossly intact Psych/Mental Status: Normal Affect, Appropriate, Alert and oriented to time, place, person, mood and affect Vital Signs Temp Pulse Resp BP Pulse Ox 98.2 F 93 18 137/71 H 93 12/11/18 07:10 12/11/18 07:58 12/11/18 07:10 12/11/18 07:58 12/11/18 07:10 Oxygen Delivery Method Room Air Weight: 109.316 kg Body Mass Index (BMI) 42.7 Intake and Output for Last 24 Hours 12/09/18 12/10/18 12/11/18 23:59 23:59 23:59 Intake Total 840 / 840 720 / 720 Output Total 300 / 300 Balance 840 / 840 420 / 420 Microbiology Past 72 Hours 12/09/18 16:40 C. difficile DNA Amplification - Final Stool Laboratory Tests Past 24 Hrs 12/10/18 13:15 Sodium 139 Potassium 3.5 Chloride 104 Carbon Dioxide 30.0 Anion Gap 5 BUN 13 Creatinine 0.85 Estim Creat Clear Calc 49.49 Est GFR (MDRD) Af Amer 84 Est GFR (MDRD) Non-Af 70 BUN/Creatinine Ratio 15.3 Glucose 290 H Calcium 8.5 POC Glucose 12/11/18 12/10/18 12/10/18 06:29 20:59 20:17 POC Glucose 212 H 190 H 195 H 12/10/18 12/10/18 16:51 11:47 POC Glucose 238 H 291 H Medical Necessity - Tobacco Use Smoking Status: Never smoker Assessment/Plan The patient is a 73 year old F with a PMH hypertension, diabetes, hyperlipidemia, GERD, depression, diabetes type 2, CAD, morbid obesity admitted to inpatient rehab on December 08, 2018 for debility secondary to status post left femur ORIF, for greater of 3 hours of therapy daily with a goal of returning back home at or near her prior level of functional dependence. On December 01, 2018 patient fell in her kitchen while putting the dishes away, patient did not hit head or no LOC. She was admitted to [facility] x-ray results of the left femur and knee demonstrated a community distal femur fracture extending from the diaphysis down to the metaphyseal region and the CT of the left knee re-demonstrates comminuted distal femur fracture, there does not appear to be an intra-articular extension. Prior to surgery cardiology was consulted due to patient's known coronary artery disease status post CABG in 1996. An EKG was done and showed an evidence of an inferior posterior TN, likely old. Troponin level and a repeat EKG was completed which did not show any dynamic changes. Patient was cleared for surgery and on December 04, 2018 Dr. Ruggiero performed open treatment left supracondylar femur fracture with plate and screw fixation. Post-op patient became nauseated and vomiting, anti-emetics and bland diet was ordered an x-ray of abdomen 2 views ordered, impression: findings are most compatible with mildly dynamic ileus and on December 07, 2018 chest x-ray 1 view ordered impression: no acute radiographic findings. Patient lives in a 1 level first-floor set up apartment with spouse and was independent with driving, mobility and ADLs prior to her surgery. Plan - PT for mobility - OT for ADLs - Bowel protocol - Analgesics as needed - Fall precautions - DVT prophylaxis lovenox 30 mg SQ daily as directed by ortho, knee high teds and SCDs to RLE only d/t LLE sumanth wrap and brace - S/P left femur ORIF change drsg to incision daily with DSD and prn, ice prn, PWB 25 % ROM 0-60 degrees in bed with knee immobilizer off, wear knee immobilizer for transfer and when out of bed. D/C joe on 12/15/2018 - HTN on metoprolol, lisinopril - GERD on protonix 20 mg - DM type 2 on levemir, and humalog S.C., monitor accu-checks AC & HS, metformin on hold d/t previous diarrhea -follow hospitalist recommendations for management - Acute diarrhea 12/09/2018 C-Diff negative, metformin on hold - Depression on celexa - Hyperlipidemia on lipitor - CAD s/p CABG on aspirin, metoprolol and lisinopril - Nausea: zofran prn (EKG prior to hospitalization and was given prior to this admission with celexa) - Further medical management per hospitalist recommendation, hospitalist consult - F/U with PCP and Orthopedics
[2018-12-11 11:46] LABS: Bedside Glucose 196 mg/dL (70-110)
--- NOTE | 2018-12-11 12:48 | PCM.PN.HOSP ---
Subjective: The patient is sitting comfortably on the bed. Patient had left femur surgery status post ORIF by Dr. Ruggiero in [facility]. Vitals/I&O's: Vital Signs Temp Pulse Resp BP Pulse Ox 98.2 F 93 18 137/71 H 93 12/11/18 07:10 12/11/18 07:58 12/11/18 07:10 12/11/18 07:58 12/11/18 07:10 Oxygen Delivery Method Room Air Weight: 241 lb 0.008 oz Body Mass Index (BMI) 42.7 Intake and Output for Last 24 Hours 12/09/18 12/10/18 12/11/18 23:59 23:59 23:59 Intake Total 840 / 840 720 / 720 Output Total 300 / 300 Balance 840 / 840 420 / 420 General: Alert, Oriented x3, Cooperative HEENT: Atraumatic, PERRLA, EOMI, Normocephalic Neck: Supple, No JVD, Negative Carotid Bruits Lungs: Clear to auscultation, Normal air movement, No rhonchi, No wheeze, No rales Cardiovascular: Regular rate, Regular Rhythm, Normal S1, Normal S2, Murmur - Systolic murmur over aortic region Abdomen: Bowel Sounds Present, Soft, Non Tender, Non-Distended Extremities: No edema, Capillary Refill Less than 3 Seconds Skin: No rashes, No breakdown Musculoskeletal: No Tenderness to Palpation of Joints or Extremities, Arthritic Changes, - - Left thigh surgical joe intact. Neurological: Cranial nerves II-XII grossly intact, Deep Tendon Reflexes 2+/4 and Symmetrical, Neuro grossly intact Psych/Mental Status: Normal Affect, Appropriate Microbiology Past 72 Hours 12/09/18 16:40 Stool C. difficile DNA Amplification - Final Laboratory Results 12/10/18 13:15: Sodium 139, Potassium 3.5, Chloride 104, Carbon Dioxide 30.0, Anion Gap 5, BUN 13, Creatinine 0.85, Estim Creat Clear Calc 49.49, Est GFR (MDRD) Af Amer 84, Est GFR (MDRD) Non-Af 70, BUN/Creatinine Ratio 15.3, Glucose 290 H, Calcium 8.5 12/10/18 16:51: POC Glucose 238 H 12/10/18 20:17: POC Glucose 195 H 12/10/18 20:59: POC Glucose 190 H 12/11/18 06:29: POC Glucose 212 H 12/11/18 11:28: POC Glucose 196 H Current Medications Acetaminophen (Tylenol) 650 mg PO Q6H PRN PRN PRN Reason: Mild Pain (0-3/10)/Headache Hydrocodone Bitart/Acetaminophen ([place] 5mg-325mg) 1 - 2 tablet PO Q6H PRN PRN PRN Reason: MOD-SEVERE PAIN (4-10/10) Aspirin (Ecotrin) 81 mg PO DAILY@0800 [facility] Last Admin: 12/11/18 07:57 Dose: 81 mg Atorvastatin Calcium (Lipitor) 40 mg PO QHS [facility] Last Admin: 12/10/18 20:23 Dose: 40 mg Citalopram Hydrobromide (Celexa) 40 mg PO DAILY [facility] Last Admin: 12/11/18 07:57 Dose: 40 mg Enoxaparin Sodium (Lovenox) 30 mg SC DAILY@0600 [facility] Last Admin: 12/11/18 05:09 Dose: 30 mg Insulin Glargine ([facility]us (Bkc)) [facility] Last Admin: 12/10/18 20:22 Dose: 24 u Insulin Human Lispro (Humalog Kwikpen (Bkc)) 0 unit SC [facility]; Protocol Last Admin: 12/11/18 12:13 Dose: 2 u Lisinopril (Zestril) 5 mg PO DAILY [facility] Last Admin: 12/11/18 07:57 Dose: 5 mg Lorazepam (Ativan) 0.5 mg PO QHS PRN PRN PRN Reason: Insomnia Metformin HCl (Glucophage Xr) 2,000 mg PO QHS [facility] Last Admin: 12/09/18 13:54 Dose: Not Given Metoprolol Succinate (Toprol Xl (Beta Mally)) 25 mg PO DAILY [facility] Last Admin: 12/11/18 07:58 Dose: 25 mg Nystatin (Mycostatin Powder) 1 applic TOPICAL TID [facility]; Protocol Ondansetron HCl (Zofran Odt) 4 mg PO Q8H PRN PRN PRN Reason: nausea and vomitting Last Admin: 12/08/18 22:29 Dose: 4 mg Pantoprazole Sodium (Protonix) 20 mg PO DAILY [facility] Last Admin: 12/11/18 07:58 Dose: 20 mg Medical Necessity - Tobacco Use Smoking Status: Never smoker Assessment/Plan This is a 73 years old female patient admitted to the inpatient rehabilitation unit after she suffered acute traumatic left femur fracture status post open reduction internal fixation in [facility] by Dr. Ruggiero admitted for acute rehab. 1. Acute diarrhea, C. difficile ruled out, likely secondary to metformin side effect. Patient did not have bowel movement since Tuesday. Resume metformin 500 mg twice daily. 2. Hypokalemia, resolved. K3.5 3. Acute traumatic left femur fracture, status post open reduction and internal fixation, therapy ongoing 4. CAD status post CABG, on aspirin, statins, metoprolol and lisinopril. 5. Type 2 diabetes mellitus, BS slightly uncontrolled, on ADA diet, Accu-Cheks, insulin sliding scale, Increase Lantus to 27 units QHS. Resume metformin 500 mg twice daily. 6. Hypertension, controlled, on lisinopril and metoprolol. 7. Hyperlipidemia, statins. 8. DVT prophylaxis - Lovenox SC Code Visit Inpatient E&M: [id number] Subs Hosp L2
[2018-12-11] MEDS: Nystatin Powder 15gm Bottle 1 APPLIC TOPICAL ×2 (13:27→21:38)
[2018-12-11] MEDS: Acetaminophen 325 MG Tablet 650 MG PO (13:35)
[2018-12-11 17:30] LABS: Bedside Glucose 248 mg/dL (70-110)
[2018-12-11 21:36] LABS: Bedside Glucose 207 mg/dL (70-110)
[2018-12-11] MEDS: Atorvastatin Calcium 40 MG Tablet PO (21:38)
[2018-12-11 22:00] VITALS: BP 137/68; PULSE 87; RESP 18; TEMP 36.8; O2SAT 96
[2018-12-12] MEDS: Enoxaparin 30 MG/0.3 ML Syringe SC (05:42)
[2018-12-12] MEDS: Nystatin Powder 15gm Bottle 1 APPLIC TOPICAL ×3 (05:43→21:31)
[2018-12-12 06:56] LABS: Bedside Glucose 227 mg/dL (70-110)
[2018-12-12 07:08] VITALS: BP 138/68; PULSE 90; RESP 18; TEMP 36.7; O2SAT 97
[2018-12-12] MEDS: Insulin Lispro 100 UNIT/ML INSULN.PEN SC ×3 (08:18→21:36)
[2018-12-12 08:19] VITALS: BP 138/68; PULSE 90
[2018-12-12] MEDS: Metoprolol(XL)Succ 25 MG Tablet PO (08:19)
[2018-12-12] MEDS: Lisinopril 5 MG Tablet PO (08:19)
[2018-12-12] MEDS: Pantoprazole Sodium 20 MG Tablet PO (08:19)
[2018-12-12] MEDS: Aspirin E.C. 81 MG Tablet PO (08:19)
[2018-12-12] MEDS: Citalopram 40 MG TABLET PO (08:20)
[2018-12-12] MEDS: HYDROcodone Bitartrate/Apap 5/325 Tablet PO ×2 (09:00→11:39)
--- NOTE | 2018-12-12 11:41 | NURSING ---
Yvrose [facility]AMM notified that pt c/o 03/17 pain after receiving 1 norco. Yvrose approved giving pt a second dose at this time.
[2018-12-12 11:55] LABS: Bedside Glucose 232 mg/dL (70-110)
--- NOTE | 2018-12-12 11:59 | PN.NEURO_ITS ---
Subjective: Per nursing no issues overnight. Per patient she is tolerating therapies well. Pain is being controlled with Ice, rest and PRN [place]. patient denies any further questions or concerns. - Physical Exam General: Alert, Oriented x3, Cooperative HEENT: Atraumatic, PERRLA Oral: Moist Mucosa Neck: Supple, No JVD Lungs: Clear to auscultation, Normal air movement Cardiovascular: Regular rate, Regular Rhythm Abdomen: Bowel Sounds Present, Soft, Non Tender, Non-Distended Extremities: No clubbing, No cyanosis Skin: Incision - joe and DSD intact, no active drng or redness noted, Excoriated - Under bilateral breasts and groin Neurological: Cranial nerves II-XII grossly intact, Deep Tendon Reflexes 2+/4 and Symmetrical, Neuro grossly intact Psych/Mental Status: Normal Affect, Appropriate, Alert and oriented to time, place, person, mood and affect Vital Signs Temp Pulse Resp BP Pulse Ox 98.0 F 90 18 138/68 H 97 12/12/18 07:08 12/12/18 08:19 12/12/18 07:08 12/12/18 08:19 12/12/18 07:08 Oxygen Delivery Method Room Air Weight: 109.316 kg Body Mass Index (BMI) 42.7 Intake and Output for Last 24 Hours 12/10/18 12/11/18 12/12/18 23:59 23:59 23:59 Intake Total 720 / 720 Output Total 300 / 300 Balance 420 / 420 Microbiology Past 72 Hours 12/09/18 16:40 C. difficile DNA Amplification - Final Stool POC Glucose 12/12/18 12/11/18 12/11/18 06:51 21:25 16:56 POC Glucose 227 H 207 H 248 H Medical Necessity - Tobacco Use Smoking Status: Never smoker Assessment/Plan The patient is a 73 year old F with a H hypertension, diabetes, hyperlipidemia, GERD, depression, diabetes type 2, CAD, morbid obesity admitted to inpatient rehab on December 08, 2018 for debility secondary to status post left femur ORIF, for greater of 3 hours of therapy daily with a goal of returning back home at or near her prior level of functional dependence. On December 01, 2018 patient fell in her kitchen while putting the dishes away, patient did not hit head or no LOC. She was admitted to [facility] x-ray results of the left femur and knee demonstrated a community distal femur fracture extending from the diaphysis down to the metaphyseal region and the CT of the left knee re-demonstrates comminuted distal femur fracture, there does not appear to be an intra-articular extension. Prior to surgery cardiology was consulted due to patient's known coronary artery disease status post CABG in 1996. An EKG was done and showed an evidence of an inferior posterior DE, likely old. Troponin level and a repeat EKG was completed which did not show any dynamic changes. Patient was cleared for surgery and on December 04, 2018 Dr. Ruggiero performed open treatment left supracondylar femur fracture with plate and screw fixation. Post-op patient became nauseated and vomiting, anti-emetics and bland diet was ordered an x-ray of abdomen 2 views ordered, impression: findings are most compatible with mildly dynamic ileus and on December 07, 2018 chest x-ray 1 view ordered impression: no acute radiographic findings. Patient lives in a 1 level first-floor set up apartment with spouse and was independent with driving, mobility and ADLs prior to her surgery. Plan - PT for mobility - OT for ADLs - Bowel protocol - Analgesics as needed - Fall precautions - DVT prophylaxis lovenox 30 mg SQ daily as directed by ortho, knee high teds and SCDs to RLE only d/t LLE sumanth wrap and brace - S/P left femur ORIF change drsg to incision daily with DSD and prn, ice prn, PWB 25 % ROM 0-60 degrees in bed with knee immobilizer off, wear knee immobilizer for transfer and when out of bed. D/C joe on 12/15/2018 - HTN on metoprolol, lisinopril - GERD on protonix 20 mg - DM type 2 on levemir, and humalog S.C., monitor accu-checks AC & HS, metformin discontinued d/t previous diarrhea -follow hospitalist recommendations for management - Acute diarrhea 12/09/2018 C-Diff negative, metformin discontinued - Depression on celexa - Hyperlipidemia on lipitor - CAD s/p CABG on aspirin, metoprolol and lisinopril - Nausea: zofran prn (EKG prior to hospitalization and was given prior to this admission with celexa) - Morbid obesity BMI 42.7 discussed wt loss, diet, and exercise benefits - Further medical management per hospitalist recommendation, hospitalist consult - F/U with PCP and Orthopedics
[2018-12-12 17:11] LABS: Bedside Glucose 123 mg/dL (70-110)
[2018-12-12 19:21] VITALS: BP 133/7; PULSE 88; RESP 16; TEMP 36.7; O2SAT 98
[2018-12-12] MEDS: Atorvastatin Calcium 40 MG Tablet PO (21:30)
[2018-12-12 21:36] LABS: Bedside Glucose 159 mg/dL (70-110)
[2018-12-12 22:00] VITALS: PULSE 88
[2018-12-13] MEDS: Acetaminophen 325 MG Tablet 650 MG PO (00:56)
[2018-12-13] MEDS: Nystatin Powder 15gm Bottle 1 APPLIC TOPICAL ×3 (06:10→21:45)
[2018-12-13] MEDS: Enoxaparin 30 MG/0.3 ML Syringe SC (06:10)
[2018-12-13] MEDS: HYDROcodone Bitartrate/Apap 5/325 Tablet PO (06:18)
[2018-12-13 06:25] LABS: Bedside Glucose 127 mg/dL (70-110)
[2018-12-13 07:36] VITALS: BP 132/63; PULSE 85; RESP 18; TEMP 36.7; O2SAT 95
[2018-12-13 08:30] VITALS: BP 132/63; PULSE 85
[2018-12-13] MEDS: Citalopram 40 MG TABLET PO (08:30)
[2018-12-13] MEDS: Pantoprazole Sodium 20 MG Tablet PO (08:30)
[2018-12-13] MEDS: Lisinopril 5 MG Tablet PO (08:30)
[2018-12-13] MEDS: Metoprolol(XL)Succ 25 MG Tablet PO (08:30)
[2018-12-13] MEDS: Aspirin E.C. 81 MG Tablet PO (08:30)
--- NOTE | 2018-12-13 10:20 | PCM.PN.NEU ---
Subjective: Per nursing no issues overnight. Patient stated that her pain is well controlled and denies calf tenderness. Also, stated she is tolerating therapies well. Denies any further questions or concerns. - Physical Exam General: Alert, Oriented x3, Cooperative HEENT: Atraumatic, PERRLA Oral: Moist Mucosa Neck: Supple, No JVD Lungs: Clear to auscultation, Normal air movement Cardiovascular: Regular rate, Regular Rhythm Abdomen: Bowel Sounds Present, Soft, Non Tender, Obese Extremities: No clubbing, No cyanosis, Edema - non-pitting to left upper thigh Skin: Incision - joe and DSD intact, no active drng or redness noted, Excoriated - Under bilateral breasts and groin Musculoskeletal: Tenderness - s/p Left femur ORIF-mild tenderness around incision area Neurological: Cranial nerves II-XII grossly intact, Deep Tendon Reflexes 2+/4 and Symmetrical, Neuro grossly intact Psych/Mental Status: Normal Affect, Appropriate, Alert and oriented to time, place, person, mood and affect Vital Signs Temp Pulse Resp BP Pulse Ox 98.1 F 85 18 132/63 H 95 12/13/18 07:36 12/13/18 08:30 12/13/18 07:36 12/13/18 08:30 12/13/18 07:36 Oxygen Delivery Method Room Air Weight: 109.316 kg Body Mass Index (BMI) 42.7 Intake and Output for Last 24 Hours 12/11/18 12/12/18 12/13/18 23:59 23:59 23:59 Intake Total 240 / 240 120 / 120 Output Total 300 / 300 Balance 240 / 240 -180 / -180 POC Glucose 12/13/18 12/12/18 12/12/18 06:19 21:31 17:05 POC Glucose 127 H 159 H 123 H 12/12/18 11:48 POC Glucose 232 H Medical Necessity - Tobacco Use Smoking Status: Never smoker Assessment/Plan The patient is a 73 year old F with a H hypertension, diabetes, hyperlipidemia, GERD, depression, diabetes type 2, CAD, morbid obesity admitted to inpatient rehab on December 08, 2018 for debility secondary to status post left femur ORIF, for greater of 3 hours of therapy daily with a goal of returning back home at or near her prior level of functional dependence. On December 01, 2018 patient fell in her kitchen while putting the dishes away, patient did not hit head or no LOC. She was admitted to [facility] x-ray results of the left femur and knee demonstrated a community distal femur fracture extending from the diaphysis down to the metaphyseal region and the CT of the left knee re-demonstrates comminuted distal femur fracture, there does not appear to be an intra-articular extension. Prior to surgery cardiology was consulted due to patient's known coronary artery disease status post CABG in 1996. An EKG was done and showed an evidence of an inferior posterior DE, likely old. Troponin level and a repeat EKG was completed which did not show any dynamic changes. Patient was cleared for surgery and on December 04, 2018 Dr. Ruggireo performed open treatment left supracondylar femur fracture with plate and screw fixation. Post-op patient became nauseated and vomiting, anti-emetics and bland diet was ordered an x-ray of abdomen 2 views ordered, impression: findings are most compatible with mildly dynamic ileus and on December 07, 2018 chest x-ray 1 view ordered impression: no acute radiographic findings. Patient lives in a 1 level first-floor set up apartment with spouse and was independent with driving, mobility and ADLs prior to her surgery. Plan - PT for mobility - OT for ADLs - Bowel protocol - Analgesics as needed - Fall precautions - DVT prophylaxis lovenox 30 mg SQ daily as directed by ortho, knee high teds and SCDs to RLE only d/t LLE sumanth wrap and brace - S/P left femur ORIF change drsg to incision daily with DSD and prn, ice prn, PWB 25 % ROM 0-60 degrees in bed with knee immobilizer off, wear knee immobilizer for transfer and when out of bed. D/C joe on 12/15/2018 - HTN on metoprolol, lisinopril - GERD on protonix 20 mg - DM type 2 on levemir, and humalog S.C., monitor accu-checks AC & HS, metformin discontinued d/t previous diarrhea -follow hospitalist recommendations for management - Acute diarrhea 12/09/2018 C-Diff negative, metformin discontinued - Depression on celexa - Hyperlipidemia on lipitor - CAD s/p CABG on aspirin, metoprolol and lisinopril - Nausea: zofran prn (EKG prior to hospitalization and was given prior to this admission with celexa) - Morbid obesity BMI 42.7 discussed wt loss, diet, and exercise benefits - Excoriation under breasts and groin- nystatin powder - Further medical management per hospitalist recommendation, hospitalist consult - F/U with PCP and Orthopedics
[2018-12-13 11:26] LABS: Bedside Glucose 159 mg/dL (70-110)
[2018-12-13] MEDS: Insulin Lispro 100 UNIT/ML INSULN.PEN SC ×3 (11:57→21:45)
--- NOTE | 2018-12-13 15:28 | PN_ITS ---
Subjective: Patient diarrhea is much controlled. Patient tolerated metformin 500 mg twice daily. will Increase to 850 mg twice daily Vitals/I&O's: Vital Signs Temp Pulse Resp BP Pulse Ox 98.1 F 85 18 132/63 H 95 12/13/18 07:36 12/13/18 08:30 12/13/18 07:36 12/13/18 08:30 12/13/18 07:36 Oxygen Delivery Method Room Air Weight: 232 lb 6.4 oz Body Mass Index (BMI) 42.7 Intake and Output for Last 24 Hours 12/11/18 12/12/18 12/13/18 23:59 23:59 23:59 Intake Total 240 / 240 480 / 480 Output Total 300 / 300 Balance 240 / 240 180 / 180 General: Alert, Oriented x3, Cooperative HEENT: Atraumatic, PERRLA, EOMI, Normocephalic Neck: Supple, No JVD, Negative Carotid Bruits Lungs: Clear to auscultation, Normal air movement, No rhonchi, No wheeze, No rales Cardiovascular: Regular rate, Regular Rhythm, Normal S1, Normal S2, No murmurs Abdomen: Bowel Sounds Present, Soft, Non Tender Extremities: No edema, Capillary Refill Less than 3 Seconds Skin: No rashes, No breakdown Musculoskeletal: No Tenderness to Palpation of Joints or Extremities, Arthritic Changes, - - Left thigh surgical incision site healthy. Brant intact. Lymphatic: No Cervical, Supraclavicular, or Inguinal Adenopathy Neurological: Cranial nerves II-XII grossly intact, Deep Tendon Reflexes 2+/4 and Symmetrical, Neuro grossly intact Psych/Mental Status: Normal Affect, Appropriate Laboratory Results 12/12/18 17:05: POC Glucose 123 H 12/12/18 21:31: POC Glucose 159 H 12/13/18 06:19: POC Glucose 127 H 12/13/18 11:11: POC Glucose 159 H Current Medications Acetaminophen (Tylenol) 650 mg PO Q6H PRN PRN PRN Reason: Mild Pain (0-3/10)/Headache Last Admin: 12/13/18 00:56 Dose: 650 mg Hydrocodone Bitart/Acetaminophen (Amoret 5mg-325mg) 1 - 2 tablet PO Q6H PRN PRN PRN Reason: MOD-SEVERE PAIN (4-10/10) Last Admin: 12/13/18 06:18 Dose: 1 tablet Aspirin (Ecotrin) 81 mg PO DAILY@0800 [facility] Last Admin: 12/13/18 08:30 Dose: 81 mg Atorvastatin Calcium (Lipitor) 40 mg PO QHS [facility] Last Admin: 12/12/18 21:30 Dose: 40 mg Citalopram Hydrobromide (Celexa) 40 mg PO DAILY [facility] Last Admin: 12/13/18 08:30 Dose: 40 mg Enoxaparin Sodium (Lovenox) 30 mg SC DAILY@0600 [facility] Last Admin: 12/13/18 06:10 Dose: 30 mg Insulin Glargine (Lantus (Bkc)) 10 units SC BREAKFAST [facility] Last Admin: 12/13/18 08:30 Dose: 10 u Insulin Glargine (Lantus (Bkc)) 25 units SC QHS [facility] Last Admin: 12/12/18 21:35 Dose: 25 u Insulin Human Lispro (Humalog Kwikpen (Bkc)) 0 unit SC ACHS [facility]; Protocol Last Admin: 12/13/18 11:57 Dose: 2 u Lisinopril (Zestril) 5 mg PO DAILY [facility] Last Admin: 12/13/18 08:30 Dose: 5 mg Lorazepam (Ativan) 0.5 mg PO QHS PRN PRN PRN Reason: Insomnia Metformin HCl (Glucophage) 500 mg PO BIDCM [facility] Last Admin: 12/13/18 08:30 Dose: 500 mg Metoprolol Succinate (Toprol Xl (Beta Mally)) 25 mg PO DAILY [facility] Last Admin: 12/13/18 08:30 Dose: 25 mg Nystatin (Mycostatin Powder) 1 applic TOPICAL TID [facility]; Protocol Last Admin: 12/13/18 13:43 Dose: 1 applicatio Ondansetron HCl (Zofran Odt) 4 mg PO Q8H PRN PRN PRN Reason: nausea and vomitting Last Admin: 12/08/18 22:29 Dose: 4 mg Pantoprazole Sodium (Protonix) 20 mg PO DAILY [facility] Last Admin: 12/13/18 08:30 Dose: 20 mg Medical Necessity - Tobacco Use Smoking Status: Never smoker Assessment/Plan This is a 73 years old female patient admitted to the inpatient rehabilitation unit after she suffered acute traumatic left femur fracture status post open reduction internal fixation in [facility] by Dr. Ruggiero admitted for acute rehab. 1. Acute diarrhea, C. difficile ruled out, likely secondary to metformin side effect. Patient did not have bowel movement since Tuesday. Patient tolerated 500 mg metformin twice daily for 2 days. Will increase to 850 mg twice daily and continue. 2. Hypokalemia, resolved. K3.5. Potassium replaced. 3. Acute traumatic left femur fracture, status post open reduction and internal fixation, therapy ongoing 4. CAD status post CABG, on aspirin, statins, metoprolol and lisinopril. 5. Type 2 diabetes mellitus, BS slightly uncontrolled, on ADA diet, Accu-Cheks, insulin sliding scale, Increase Lantus to 27 units QHS. Metformin 850 mg twice daily 6. Hypertension, controlled, on lisinopril and metoprolol. 7. Hyperlipidemia, statins. 8. DVT prophylaxis - Lovenox SC Code Visit Inpatient E&M: 77635 Subs Hosp L2
[2018-12-13 16:26] LABS: Bedside Glucose 178 mg/dL (70-110)
[2018-12-13 19:58] VITALS: BP 111/71; PULSE 90; RESP 18; TEMP 36.7; O2SAT 96
[2018-12-13] MEDS: Atorvastatin Calcium 40 MG Tablet PO (21:45)
[2018-12-13 21:55] LABS: Bedside Glucose 157 mg/dL (70-110)
--- NOTE | 2018-12-14 02:03 | NURSING ---
REVIEWED AND AGREE WITH GUITAR INSTRUCTOR'S FIM AND HANDOFF CHARTING.
[2018-12-14] MEDS: Enoxaparin 30 MG/0.3 ML Syringe SC (06:46)
[2018-12-14] MEDS: Nystatin Powder 15gm Bottle 1 APPLIC TOPICAL ×3 (06:46→20:06)
[2018-12-14 07:05] LABS: Bedside Glucose 182 mg/dL (70-110)
[2018-12-14 07:27] VITALS: BP 115/56; PULSE 94; RESP 18; TEMP 36.9; O2SAT 95
[2018-12-14] MEDS: Lisinopril 5 MG Tablet PO (08:17)
[2018-12-14 08:18] VITALS: BP 115/56; PULSE 94
[2018-12-14] MEDS: Pantoprazole Sodium 20 MG Tablet PO (08:18)
[2018-12-14] MEDS: Aspirin E.C. 81 MG Tablet PO (08:18)
[2018-12-14] MEDS: Metoprolol(XL)Succ 25 MG Tablet PO (08:18)
[2018-12-14] MEDS: Citalopram 40 MG TABLET PO (08:18)
[2018-12-14] MEDS: Insulin Lispro 100 UNIT/ML INSULN.PEN SC ×2 (08:19→12:13)
[2018-12-14] MEDS: Acetaminophen 325 MG Tablet 650 MG PO (08:26)
--- NOTE | 2018-12-14 08:40 | PCM.PN.NEU ---
Subjective: Per nursing no issues overnight. Pain is well controlled. Team meeting held this am. Patient continues to improve with mobility and ADLs and will be re-teamed next week. Patient denied any further questions or concerns. - Physical Exam General: Alert, Oriented x3, Cooperative HEENT: Atraumatic, PERRLA Oral: Moist Mucosa Neck: Supple, No JVD Lungs: Clear to auscultation, Normal air movement Cardiovascular: Regular rate, Regular Rhythm Abdomen: Bowel Sounds Present, Soft, Non Tender, Obese Extremities: No clubbing, No cyanosis, Edema - non-pitting to left upper thigh Musculoskeletal: Tenderness - mild tenderness to left upper thigh Neurological: Cranial nerves II-XII grossly intact, Deep Tendon Reflexes 2+/4 and Symmetrical, Neuro grossly intact Psych/Mental Status: Normal Affect, Appropriate, Alert and oriented to time, place, person, mood and affect Vital Signs Temp Pulse Resp BP Pulse Ox 98.5 F 94 18 115/56 L 95 12/14/18 07:27 12/14/18 08:18 12/14/18 07:27 12/14/18 08:18 12/14/18 07:27 Oxygen Delivery Method Room Air Weight: 105.415 kg Body Mass Index (BMI) 42.7 Intake and Output for Last 24 Hours 12/12/18 12/13/18 12/14/18 23:59 23:59 23:59 Intake Total 240 / 240 600 / 600 Output Total 300 / 300 Balance 240 / 240 300 / 300 POC Glucose 12/14/18 12/13/18 12/13/18 06:50 21:42 16:16 POC Glucose 182 H 157 H 178 H 12/13/18 11:11 POC Glucose 159 H Medical Necessity - Tobacco Use Smoking Status: Never smoker Assessment/Plan The patient is a 73 year old F with a H hypertension, diabetes, hyperlipidemia, GERD, depression, diabetes type 2, CAD, morbid obesity admitted to inpatient rehab on December 08, 2018 for debility secondary to status post left femur ORIF, for greater of 3 hours of therapy daily with a goal of returning back home at or near her prior level of functional dependence. On December 01, 2018 patient fell in her kitchen while putting the dishes away, patient did not hit head or no LOC. She was admitted to [facility] x-ray results of the left femur and knee demonstrated a community distal femur fracture extending from the diaphysis down to the metaphyseal region and the CT of the left knee re-demonstrates comminuted distal femur fracture, there does not appear to be an intra-articular extension. Prior to surgery cardiology was consulted due to patient's known coronary artery disease status post CABG in 1996. An EKG was done and showed an evidence of an inferior posterior LA, likely old. Troponin level and a repeat EKG was completed which did not show any dynamic changes. Patient was cleared for surgery and on December 04, 2018 Dr. Ruggiero performed open treatment left supracondylar femur fracture with plate and screw fixation. Post-op patient became nauseated and vomiting, anti-emetics and bland diet was ordered an x-ray of abdomen 2 views ordered, impression: findings are most compatible with mildly dynamic ileus and on December 07, 2018 chest x-ray 1 view ordered impression: no acute radiographic findings. Patient lives in a 1 level first-floor set up apartment with spouse and was independent with driving, mobility and ADLs prior to her surgery. Plan - PT for mobility - OT for ADLs - Bowel protocol - Analgesics as needed - Fall precautions - DVT prophylaxis lovenox 30 mg SQ daily as directed by ortho, knee high teds and SCDs to RLE only d/t LLE sumanth wrap and brace - S/P left femur ORIF change drsg to incision daily with DSD and prn, ice prn, PWB 25 % ROM 0-60 degrees in bed with knee immobilizer off, wear knee immobilizer for transfer and when out of bed. D/C joe on 12/15/2018 - HTN on metoprolol, lisinopril - GERD on protonix 20 mg - DM type 2 on levemir, and humalog S.C., monitor accu-checks AC & HS, metformin started at 850 mg bid - follow hospitalist recommendations for management - Acute diarrhea 12/09/2018 C-Diff negative, metformin discontinued - Depression on celexa - Hyperlipidemia on lipitor - CAD s/p CABG on aspirin, metoprolol and lisinopril - Nausea: zofran prn (EKG prior to hospitalization and was given prior to this admission with celexa) - Morbid obesity BMI 42.7 discussed wt loss, diet, and exercise benefits - Excoriation under breasts and groin- nystatin powder - Further medical management per hospitalist recommendation, hospitalist consult - F/U with PCP and Orthopedics
[2018-12-14 11:50] LABS: Bedside Glucose 189 mg/dL (70-110)
[2018-12-14] MEDS: HYDROcodone Bitartrate/Apap 5/325 Tablet PO (12:13)
--- NOTE | 2018-12-14 13:51 | CASEMGMT ---
Team meeting held today with pt and two daughters present. Pt is participating in PT/and OT and progressing. 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 No d/c date set at this time. Family inquiring about Passport program and SW provided information. Per family, pt has applied for Medicaid while in [facility] and pt would also likely benefit from the program. Will continue with treatment plan at this time and reteam next week. Referral made to [facility] for the Passport program. Message left and will expect return call to complete the referral. OBDULIA Womack
[2018-12-14 16:35] LABS: Bedside Glucose 130 mg/dL (70-110)
--- NOTE | 2018-12-14 18:34 | NURSING ---
Reviewed and agree with CURRICULUM DEVELOPMENT SPECIALIST's FIMS and charting
[2018-12-14 20:04] VITALS: BP 134/64; PULSE 99; RESP 16; TEMP 36.8; O2SAT 95
[2018-12-14] MEDS: Atorvastatin Calcium 40 MG Tablet PO (20:06)
[2018-12-14 21:21] LABS: Bedside Glucose 148 mg/dL (70-110)
--- NOTE | 2018-12-15 02:09 | NURSING ---
REVIEWED AND AGREE WITH EXHIBIT ELECTRICIAN'S FIM AND HANDOFF CHARTING.
[2018-12-15] MEDS: Nystatin Powder 15gm Bottle 1 APPLIC TOPICAL ×3 (05:27→22:20)
[2018-12-15] MEDS: Enoxaparin 30 MG/0.3 ML Syringe SC (05:27)
--- NOTE | 2018-12-15 05:31 | NURSING ---
27 joe d/c from surgical incisions at this time per order. 8 small steri strips placed for reinforcement. incisions cleansed with soap and water at this time. incisions were pat to dry. incisions noted to be reddened around and dried skin noted. scabbed area noted to distal end of long incision. pt tolerated procedure well.
[2018-12-15 06:55] LABS: Bedside Glucose 137 mg/dL (70-110)
[2018-12-15 07:41] VITALS: BP 108/63; PULSE 99; RESP 16; TEMP 36.8; O2SAT 95
[2018-12-15 07:47] VITALS: BP 108/63; PULSE 99
[2018-12-15] MEDS: Aspirin E.C. 81 MG Tablet PO (07:47)
[2018-12-15] MEDS: Lisinopril 5 MG Tablet PO (07:47)
[2018-12-15] MEDS: Citalopram 40 MG TABLET PO (07:47)
[2018-12-15] MEDS: Pantoprazole Sodium 20 MG Tablet PO (07:47)
[2018-12-15] MEDS: Metoprolol(XL)Succ 25 MG Tablet PO (07:47)
[2018-12-15] MEDS: HYDROcodone Bitartrate/Apap 5/325 Tablet PO ×3 (07:50→22:53)
[2018-12-15 11:30] LABS: Bedside Glucose 168 mg/dL (70-110)
--- NOTE | 2018-12-15 11:46 | PCM.PN.NEU ---
Subjective: Per nursing diarrhea from metformin has decreased and only 1-2 small episodes this am. Per patient she is tolerating therapies well and states her pain is well controlled. Patient denied further questions or concerns. - Physical Exam General: Alert, Oriented x3, Cooperative HEENT: Atraumatic, PERRLA Oral: Moist Mucosa Neck: Supple, No JVD Lungs: Clear to auscultation, Normal air movement Cardiovascular: Regular rate, Regular Rhythm Abdomen: Bowel Sounds Present, Soft, Non Tender, Obese Extremities: No clubbing, No cyanosis, Edema - non-pitting to left upper thigh Skin: Incision - without redness or drng, [place] d/c this am. 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 Musculoskeletal: No Tenderness to Palpation of Joints or Extremities Neurological: Cranial nerves II-XII grossly intact, Deep Tendon Reflexes 2+/4 and Symmetrical, Neuro grossly intact Psych/Mental Status: Normal Affect, Appropriate, Alert and oriented to time, place, person, mood and affect Vital Signs Temp Pulse Resp BP Pulse Ox 98.3 F 99 16 108/63 95 12/15/18 07:41 12/15/18 07:47 12/15/18 07:41 12/15/18 07:47 12/15/18 07:41 Oxygen Delivery Method Room Air Weight: 105.415 kg Body Mass Index (BMI) 42.7 Intake and Output for Last 24 Hours 12/13/18 12/14/18 12/15/18 23:59 23:59 23:59 Intake Total 600 / 600 1080 / 1080 240 / 240 Output Total 300 / 300 Balance 300 / 300 1080 / 1080 240 / 240 POC Glucose 12/15/18 12/15/18 12/14/18 11:14 06:51 21:15 POC Glucose 168 H 137 H 148 H 12/14/18 12/14/18 16:26 11:42 POC Glucose 130 H 189 H Medical Necessity - Tobacco Use Smoking Status: Never smoker Assessment/Plan The patient is a 73 year old F with a H hypertension, diabetes, hyperlipidemia, GERD, depression, diabetes type 2, CAD, morbid obesity admitted to inpatient rehab on December 08, 2018 for debility secondary to status post left femur ORIF, for greater of 3 hours of therapy daily with a goal of returning back home at or near her prior level of functional dependence. On December 01, 2018 patient fell in her kitchen while putting the dishes away, patient did not hit head or no LOC. She was admitted to [facility] x-ray results of the left femur and knee demonstrated a community distal femur fracture extending from the diaphysis down to the metaphyseal region and the CT of the left knee re-demonstrates comminuted distal femur fracture, there does not appear to be an intra-articular extension. Prior to surgery cardiology was consulted due to patient's known coronary artery disease status post CABG in 1996. An EKG was done and showed an evidence of an inferior posterior RI, likely old. Troponin level and a repeat EKG was completed which did not show any dynamic changes. Patient was cleared for surgery and on December 04, 2018 Dr. Ruggiero performed open treatment left supracondylar femur fracture with plate and screw fixation. Post-op patient became nauseated and vomiting, anti-emetics and bland diet was ordered an x-ray of abdomen 2 views ordered, impression: findings are most compatible with mildly dynamic ileus and on December 07, 2018 chest x-ray 1 view ordered impression: no acute radiographic findings. Patient lives in a 1 level first-floor set up apartment with spouse and was independent with driving, mobility and ADLs prior to her surgery. Plan - PT for mobility - OT for ADLs - Bowel protocol - Analgesics as needed - Fall precautions - DVT prophylaxis lovenox 30 mg SQ daily as directed by ortho, knee high teds and SCDs to RLE only d/t LLE sumanth wrap and brace - S/P left femur ORIF change drsg to incision daily with DSD and prn, ice prn, PWB 25 % ROM 0-60 degrees in bed with knee immobilizer off, wear knee immobilizer for transfer and when out of bed. - HTN on metoprolol, lisinopril - GERD on protonix 20 mg - DM type 2 on levemir, and humalog S.C., monitor accu-checks AC & HS, metformin started at 850 mg bid - follow hospitalist recommendations for management - Depression on celexa - Hyperlipidemia on lipitor - CAD s/p CABG on aspirin, metoprolol and lisinopril - Nausea: zofran prn (EKG prior to hospitalization and was given prior to this admission with celexa) - Morbid obesity BMI 42.7 discussed wt loss, diet, and exercise benefits - Excoriation under breasts and groin- nystatin powder - Further medical management per hospitalist recommendation, hospitalist consult - F/U with PCP and Orthopedics
[2018-12-15] MEDS: Insulin Lispro 100 UNIT/ML INSULN.PEN SC (12:18)
[2018-12-15 16:45] LABS: Bedside Glucose 138 mg/dL (70-110)
--- NOTE | 2018-12-15 16:55 | PCM.PN.HOSP ---
Subjective: Patient is doing good with physical therapy. Seems tired after physical therapy. Denies any bowel or urinary complaint. No fever or chills. Vitals/I&O's: Vital Signs Temp Pulse Resp BP Pulse Ox 98.3 F 99 16 108/63 95 12/15/18 07:41 12/15/18 07:47 12/15/18 07:41 12/15/18 07:47 12/15/18 07:41 Oxygen Delivery Method Room Air Weight: 232 lb 6.4 oz Body Mass Index (BMI) 42.7 Intake and Output for Last 24 Hours 12/13/18 12/14/18 12/15/18 23:59 23:59 23:59 Intake Total 600 / 600 1080 / 1080 240 / 240 Output Total 300 / 300 Balance 300 / 300 1080 / 1080 240 / 240 General: Alert, Oriented x3, Cooperative HEENT: Atraumatic, PERRLA, EOMI, Normocephalic Neck: Supple, No JVD, Negative Carotid Bruits Lungs: Clear to auscultation, Normal air movement, No rhonchi, No wheeze, No rales Cardiovascular: Regular rate, Regular Rhythm, Normal S1, Normal S2, No murmurs Abdomen: Bowel Sounds Present, Soft, Non Tender, Non-Distended Extremities: No edema, Capillary Refill Less than 3 Seconds Skin: No rashes, No breakdown Musculoskeletal: No Tenderness to Palpation of Joints or Extremities, Arthritic Changes, - - Left femur surgical scar healthy Lymphatic: No Cervical, Supraclavicular, or Inguinal Adenopathy Neurological: Cranial nerves II-XII grossly intact, Deep Tendon Reflexes 2+/4 and Symmetrical, Neuro grossly intact, Motor Exam 5/5 strength throughout Psych/Mental Status: Normal Affect, Appropriate Laboratory Results 12/14/18 21:15: POC Glucose 148 H 12/15/18 06:51: POC Glucose 137 H 12/15/18 11:14: POC Glucose 168 H 12/15/18 16:36: POC Glucose 138 H Current Medications Acetaminophen (Tylenol) 650 mg PO Q6H PRN PRN PRN Reason: Mild Pain (0-3/10)/Headache Last Admin: 12/14/18 08:26 Dose: 650 mg Hydrocodone Bitart/Acetaminophen ([place] 5mg-325mg) 1 - 2 tablet PO Q6H PRN PRN PRN Reason: MOD-SEVERE PAIN (-05/17) Last Admin: 12/15/18 14:44 Dose: 1 tablet Aspirin (Ecotrin) 81 mg PO DAILY@0800 [facility] Last Admin: 12/15/18 07:47 Dose: 81 mg Atorvastatin Calcium (Lipitor) 40 mg PO QHS [facility] Last Admin: 12/14/18 20:06 Dose: 40 mg Citalopram Hydrobromide (Celexa) 40 mg PO DAILY [facility] Last Admin: 12/15/18 07:47 Dose: 40 mg Enoxaparin Sodium (Lovenox) 30 mg SC DAILY@0600 [facility] Last Admin: 12/15/18 05:27 Dose: 30 mg Insulin Glargine (Lantus (Bkc)) 10 units SC BREAKFAST [facility] Last Admin: 12/15/18 07:48 Dose: 10 u Insulin Glargine (Lantus (Bkc)) 25 units SC QHS [facility] Last Admin: 12/14/18 22:07 Dose: 25 u Insulin Human Lispro (Humalog Kwikpen (Bkc)) 0 unit SC [facility]; Protocol Last Admin: 12/15/18 12:18 Dose: 2 u Lisinopril (Zestril) 5 mg PO DAILY [facility] Last Admin: 12/15/18 07:47 Dose: 5 mg Lorazepam (Ativan) 0.5 mg PO QHS PRN PRN PRN Reason: Insomnia Metformin HCl (Glucophage) 850 mg PO BIDCM [facility] Last Admin: 12/15/18 07:47 Dose: 850 mg Metoprolol Succinate (Toprol Xl (Beta Mally)) 25 mg PO DAILY [facility] Last Admin: 12/15/18 07:47 Dose: 25 mg Nystatin (Mycostatin Powder) 1 applic TOPICAL TID [facility]; Protocol Last Admin: 12/15/18 14:44 Dose: 1 applicatio Ondansetron HCl (Zofran Odt) 4 mg PO Q8H PRN PRN PRN Reason: nausea and vomitting Last Admin: 12/08/18 22:29 Dose: 4 mg Pantoprazole Sodium (Protonix) 20 mg PO DAILY [facility] Last Admin: 12/15/18 07:47 Dose: 20 mg Medical Necessity - Tobacco Use Smoking Status: Never smoker Assessment/Plan This is a 73 years old female patient admitted to the inpatient rehabilitation unit after she suffered acute traumatic left femur fracture status post open reduction internal fixation in [facility] by Dr. Ruggiero admitted for acute rehab. 1. Acute diarrhea, C. difficile ruled out, likely secondary to metformin side effect. Patient did not have bowel movement since Tuesday. Patient tolerated 500 mg metformin twice daily for 2 days. Will increase to 850 mg twice daily and continue. 2. Hypokalemia, resolved. K3.5. Potassium replaced. 3. Acute traumatic left femur fracture, status post open reduction and internal fixation, therapy ongoing 4. CAD status post CABG, on aspirin, statins, metoprolol and lisinopril. 5. Type 2 diabetes mellitus, BS slightly uncontrolled, on ADA diet, Accu-Cheks, insulin sliding scale, On Lantus to 27 units QHS. Metformin 850 mg twice daily. Blood sugars are well controlled. Patient is tolerating metformin. 6. Hypertension, controlled, on lisinopril and metoprolol. 7. Hyperlipidemia, statins. 8. DVT prophylaxis - Lovenox SC Active Medications Acetaminophen (Tylenol) 650 mg PO Q6H PRN PRN PRN Reason: Mild Pain (0-3/10)/Headache Last Admin: 12/16/18 13:57 Dose: 650 mg Hydrocodone Bitart/Acetaminophen ([place] 5mg-325mg) 1 - 2 tablet PO Q6H PRN PRN PRN Reason: MOD-SEVERE PAIN (4-10/10) Last Admin: 12/16/18 05:58 Dose: 1 tablet Aspirin (Ecotrin) 81 mg PO DAILY@0800 [facility] Last Admin: 12/16/18 07:49 Dose: 81 mg Atorvastatin Calcium (Lipitor) 40 mg PO QHS [facility] Last Admin: 12/15/18 22:16 Dose: 40 mg Citalopram Hydrobromide (Celexa) 40 mg PO DAILY [facility] Last Admin: 12/16/18 07:49 Dose: 40 mg Enoxaparin Sodium (Lovenox) 30 mg SC DAILY@0600 [facility] Last Admin: 12/16/18 05:54 Dose: 30 mg Insulin Glargine (Lantus (Bkc)) 10 units SC BREAKFAST [facility] Last Admin: 12/16/18 07:49 Dose: 10 u Insulin Glargine (Lantus (Bkc)) 25 units SC QHS [facility] Last Admin: 12/15/18 22:16 Dose: 25 u Insulin Human Lispro (Humalog Kwikpen (Bkc)) 0 unit SC ACHS [facility]; Protocol Last Admin: 12/16/18 11:44 Dose: 2 u Lisinopril (Zestril) 5 mg PO DAILY [facility] Last Admin: 12/16/18 07:50 Dose: 5 mg Lorazepam (Ativan) 0.5 mg PO QHS PRN PRN PRN Reason: Insomnia Metformin HCl (Glucophage) 850 mg PO BIDCM [facility] Last Admin: 12/16/18 07:49 Dose: 850 mg Metoprolol Succinate (Toprol Xl (Beta Mally)) 25 mg PO DAILY [facility] Last Admin: 12/16/18 07:48 Dose: 25 mg Nystatin (Mycostatin Powder) 1 applic TOPICAL TID [facility]; Protocol Last Admin: 12/16/18 13:54 Dose: 1 applicatio Ondansetron HCl (Zofran Odt) 4 mg PO Q8H PRN PRN PRN Reason: nausea and vomitting Last Admin: 12/08/18 22:29 Dose: 4 mg Pantoprazole Sodium (Protonix) 20 mg PO DAILY [facility] Last Admin: 12/16/18 07:49 Dose: 20 mg Laboratory Results 12/15/18 16:36: POC Glucose 138 H 12/15/18 21:15: POC Glucose 138 H 12/16/18 06:38: POC Glucose 119 H 12/16/18 11:35: POC Glucose 165 H Code Visit Inpatient E&M: 67112 Subs Hosp L2
[2018-12-15 22:00] VITALS: BP 119/57; PULSE 65; RESP 16; TEMP 36.7; O2SAT 95
[2018-12-15 22:00] LABS: Bedside Glucose 138 mg/dL (70-110)
[2018-12-15] MEDS: Atorvastatin Calcium 40 MG Tablet PO (22:16)
--- NOTE | 2018-12-16 00:48 | NURSING ---
REviewed and agree with LPNs fims and handoff
[2018-12-16] MEDS: Enoxaparin 30 MG/0.3 ML Syringe SC (05:54)
[2018-12-16] MEDS: Nystatin Powder 15gm Bottle 1 APPLIC TOPICAL ×3 (05:54→20:36)
[2018-12-16] MEDS: HYDROcodone Bitartrate/Apap 5/325 Tablet PO ×2 (05:58→21:50)
[2018-12-16 06:40] LABS: Bedside Glucose 119 mg/dL (70-110)
[2018-12-16 07:38] VITALS: BP 116/68; PULSE 93; RESP 16; TEMP 36.6; O2SAT 95
[2018-12-16 07:48] VITALS: BP 116/68; PULSE 93
[2018-12-16] MEDS: Metoprolol(XL)Succ 25 MG Tablet PO (07:48)
[2018-12-16] MEDS: Aspirin E.C. 81 MG Tablet PO (07:49)
[2018-12-16] MEDS: Citalopram 40 MG TABLET PO (07:49)
[2018-12-16] MEDS: Pantoprazole Sodium 20 MG Tablet PO (07:49)
[2018-12-16] MEDS: Lisinopril 5 MG Tablet PO (07:50)
[2018-12-16 11:40] LABS: Bedside Glucose 165 mg/dL (70-110)
[2018-12-16] MEDS: Insulin Lispro 100 UNIT/ML INSULN.PEN SC (11:44)
[2018-12-16] MEDS: Acetaminophen 325 MG Tablet 650 MG PO (13:57)
[2018-12-16 17:16] LABS: Bedside Glucose 93 mg/dL (70-110)
[2018-12-16 20:37] VITALS: BP 120/64; PULSE 89; RESP 17; TEMP 36.6; O2SAT 95
[2018-12-16 21:20] LABS: Bedside Glucose 146 mg/dL (70-110)
[2018-12-16] MEDS: Atorvastatin Calcium 40 MG Tablet PO (21:50)
[2018-12-16 22:00] VITALS: PULSE 87; RESP 16; O2SAT 95
[2018-12-17] MEDS: HYDROcodone Bitartrate/Apap 5/325 Tablet PO (06:02)
[2018-12-17] MEDS: Enoxaparin 30 MG/0.3 ML Syringe SC (06:03)
[2018-12-17] MEDS: Nystatin Powder 15gm Bottle 1 APPLIC TOPICAL ×2 (06:17→20:56)
[2018-12-17 06:45] LABS: Bedside Glucose 139 mg/dL (70-110)
[2018-12-17 07:31] VITALS: BP 115/64; PULSE 91; RESP 18; TEMP 36.6; O2SAT 94
[2018-12-17 07:43] VITALS: BP 115/66; PULSE 91
[2018-12-17] MEDS: Lisinopril 5 MG Tablet PO (07:43)
[2018-12-17] MEDS: Metoprolol(XL)Succ 25 MG Tablet PO (07:43)
[2018-12-17] MEDS: Citalopram 40 MG TABLET PO (07:44)
[2018-12-17] MEDS: Aspirin E.C. 81 MG Tablet PO (07:44)
[2018-12-17] MEDS: Pantoprazole Sodium 20 MG Tablet PO (07:45)
[2018-12-17 11:26] LABS: Bedside Glucose 211 mg/dL (70-110)
[2018-12-17] MEDS: Insulin Lispro 100 UNIT/ML INSULN.PEN SC (11:51)
--- NOTE | 2018-12-17 13:03 | PCM.PN.HOSP ---
Subjective: She did not have further problem diarrhea. Not tolerated metformin 850 mg twice daily. Vitals are stable. Blood pressure well controlled. Objective: General: Alert, Oriented x3, Cooperative HEENT: Atraumatic, PERRLA, EOMI, Normocephalic Neck: Supple, No JVD, Negative Carotid Bruits Lungs: Clear to auscultation, Normal air movement, No rhonchi, No wheeze, No rales Cardiovascular: Regular rate, Regular Rhythm, Normal S1, Normal S2, No murmurs Abdomen: Bowel Sounds Present, Soft, Non Tender Extremities: No edema, Capillary Refill Less than 3 Seconds Skin: No rashes, No breakdown Musculoskeletal: No Tenderness to Palpation of Joints or Extremities, Arthritic Changes, Left thigh surgical incision site healthy.Brant removed. No bruise. Lymphatic: No Cervical, Supraclavicular, or Inguinal Adenopathy Neurological: Cranial nerves II-XII grossly intact, Deep Tendon Reflexes 2+/4 and Symmetrical, Neuro grossly intact Psych/Mental Status: Normal Affect, Appropriate Vitals/I&O's: Vital Signs Temp Pulse Resp BP Pulse Ox 97.9 F 91 18 115/66 94 12/17/18 07:31 12/17/18 07:43 12/17/18 07:31 12/17/18 07:43 12/17/18 07:31 Oxygen Delivery Method Room Air Weight: 232 lb 6.4 oz Body Mass Index (BMI) 42.7 Intake and Output for Last 24 Hours 12/15/18 12/16/18 12/17/18 23:59 23:59 23:59 Intake Total 420 / 420 700 / 700 65 / 65 Output Total 250 / 250 Balance 420 / 420 450 / 450 65 / 65 Laboratory Results 12/16/18 17:11: POC Glucose 93 12/16/18 21:04: POC Glucose 146 H 12/17/18 06:24: POC Glucose 139 H 12/17/18 11:11: POC Glucose 211 H Current Medications Acetaminophen (Tylenol) 650 mg PO Q6H PRN PRN PRN Reason: Mild Pain (0-3/10)/Headache Last Admin: 12/16/18 13:57 Dose: 650 mg Hydrocodone Bitart/Acetaminophen ([place] 5mg-325mg) 1 - 2 tablet PO Q6H PRN PRN PRN Reason: MOD-SEVERE PAIN (4-10/10) Last Admin: 12/17/18 06:02 Dose: 1 tablet Aspirin (Ecotrin) 81 mg PO DAILY@0800 [facility] Last Admin: 12/17/18 07:44 Dose: 81 mg Atorvastatin Calcium (Lipitor) 40 mg PO QHS [facility] Last Admin: 12/16/18 21:50 Dose: 40 mg Citalopram Hydrobromide (Celexa) 40 mg PO DAILY [facility] Last Admin: 12/17/18 07:44 Dose: 40 mg Enoxaparin Sodium (Lovenox) 30 mg SC DAILY@0600 [facility] Last Admin: 12/17/18 06:03 Dose: 30 mg Insulin Glargine (Lantus (Bkc)) 10 units SC BREAKFAST [facility] Last Admin: 12/17/18 07:45 Dose: 10 u Insulin Glargine (Lantus (Bkc)) 25 units SC QHS [facility] Last Admin: 12/16/18 21:50 Dose: 25 u Insulin Human Lispro (Humalog Kwikpen (Bkc)) 0 unit SC [facility]; Protocol Last Admin: 12/17/18 11:51 Dose: 4 u Lisinopril (Zestril) 5 mg PO DAILY [facility] Last Admin: 12/17/18 07:43 Dose: 5 mg Lorazepam (Ativan) 0.5 mg PO QHS PRN PRN PRN Reason: Insomnia Metformin HCl (Glucophage) 850 mg PO BIDCM [facility] Last Admin: 12/17/18 07:44 Dose: 850 mg Metoprolol Succinate (Toprol Xl (Beta Mally)) 25 mg PO DAILY [facility] Last Admin: 12/17/18 07:43 Dose: 25 mg Nystatin (Mycostatin Powder) 1 applic TOPICAL TID [facility]; Protocol Last Admin: 12/17/18 06:17 Dose: 1 applicatio Ondansetron HCl (Zofran Odt) 4 mg PO Q8H PRN PRN PRN Reason: nausea and vomitting Last Admin: 12/08/18 22:29 Dose: 4 mg Pantoprazole Sodium (Protonix) 20 mg PO DAILY [facility] Last Admin: 12/17/18 07:45 Dose: 20 mg Medical Necessity - Tobacco Use Smoking Status: Never smoker Assessment/Plan This is a 73 years old female patient admitted to the inpatient rehabilitation unit after she suffered acute traumatic left femur fracture status post open reduction internal fixation in [facility] by Dr. Ruggiero admitted for acute rehab. 1. Acute diarrhea, C. difficile ruled out, likely secondary to metformin side effect. Patient did not have bowel movement since Tuesday. Patient tolerated 500 mg metformin twice daily for 2 days. On 850 mg twice daily and continue. CBC and BMP tomorrow morning. 2. Hypokalemia, resolved. K3.5. Potassium replaced. 3. Acute traumatic left femur fracture, status post open reduction and internal fixation, therapy ongoing 4. CAD status post CABG, on aspirin, statins, metoprolol and lisinopril. 5. Type 2 diabetes mellitus, BS slightly uncontrolled, on ADA diet, Accu-Cheks, insulin sliding scale, Metformin 850 mg twice daily. Sugar elevated. Patient is tolerating metformin. Lantus insulin increased to 15 units subcu at breakfast and 25 units at bedtime daily. Titrate insulin according to the Accu-Cheks. 6. Hypertension, controlled, on lisinopril and metoprolol. 7. Hyperlipidemia, statins. 8. DVT prophylaxis - Lovenox SC Laboratory Results 12/16/18 17:11: POC Glucose 93 12/16/18 21:04: POC Glucose 146 H 12/17/18 06:24: POC Glucose 139 H 12/17/18 11:11: POC Glucose 211 H Code Visit Inpatient E&M: 43414 Subs Hosp L2
--- NOTE | 2018-12-17 13:09 | PN_ITS ---
Subjective: She did not have further problem diarrhea. Not tolerated metformin 850 mg twice daily. Vitals are stable. Blood pressure well controlled. Objective: General: Alert, Oriented x3, Cooperative HEENT: Atraumatic, PERRLA, EOMI, Normocephalic Neck: Supple, No JVD, Negative Carotid Bruits Lungs: Clear to auscultation, Normal air movement, No rhonchi, No wheeze, No rales Cardiovascular: Regular rate, Regular Rhythm, Normal S1, Normal S2, No murmurs Abdomen: Bowel Sounds Present, Soft, Non Tender Extremities: No edema, Capillary Refill Less than 3 Seconds Skin: No rashes, No breakdown Musculoskeletal: No Tenderness to Palpation of Joints or Extremities, Arthritic Changes, Left thigh surgical incision site healthy.Brant removed. No bruise. Lymphatic: No Cervical, Supraclavicular, or Inguinal Adenopathy Neurological: Cranial nerves II-XII grossly intact, Deep Tendon Reflexes 2+/4 and Symmetrical, Neuro grossly intact Psych/Mental Status: Normal Affect, Appropriate Vitals/I&O's: Vital Signs Temp Pulse Resp BP Pulse Ox 97.9 F 91 18 115/66 94 12/17/18 07:31 12/17/18 07:43 12/17/18 07:31 12/17/18 07:43 12/17/18 07:31 Oxygen Delivery Method Room Air Weight: 232 lb 6.4 oz Body Mass Index (BMI) 42.7 Intake and Output for Last 24 Hours 12/15/18 12/16/18 12/17/18 23:59 23:59 23:59 Intake Total 420 / 420 700 / 700 65 / 65 Output Total 250 / 250 Balance 420 / 420 450 / 450 65 / 65 Laboratory Results 12/16/18 17:11: POC Glucose 93 12/16/18 21:04: POC Glucose 146 H 12/17/18 06:24: POC Glucose 139 H 12/17/18 11:11: POC Glucose 211 H Current Medications Acetaminophen (Tylenol) 650 mg PO Q6H PRN PRN PRN Reason: Mild Pain (0-3/10)/Headache Last Admin: 12/16/18 13:57 Dose: 650 mg Hydrocodone Bitart/Acetaminophen ([place] 5mg-325mg) 1 - 2 tablet PO Q6H PRN PRN PRN Reason: MOD-SEVERE PAIN (4-10/10) Last Admin: 12/17/18 06:02 Dose: 1 tablet Aspirin (Ecotrin) 81 mg PO DAILY@0800 [facility] Last Admin: 12/17/18 07:44 Dose: 81 mg Atorvastatin Calcium (Lipitor) 40 mg PO QHS [facility] Last Admin: 12/16/18 21:50 Dose: 40 mg Citalopram Hydrobromide (Celexa) 40 mg PO DAILY [facility] Last Admin: 12/17/18 07:44 Dose: 40 mg Enoxaparin Sodium (Lovenox) 30 mg SC DAILY@0600 [facility] Last Admin: 12/17/18 06:03 Dose: 30 mg Insulin Glargine (Lantus (Bkc)) 10 units SC BREAKFAST [facility] Last Admin: 12/17/18 07:45 Dose: 10 u Insulin Glargine (Lantus (Bkc)) 25 units SC QHS [facility] Last Admin: 12/16/18 21:50 Dose: 25 u Insulin Human Lispro (Humalog Kwikpen (Bkc)) 0 unit SC [facility]; Protocol Last Admin: 12/17/18 11:51 Dose: 4 u Lisinopril (Zestril) 5 mg PO DAILY [facility] Last Admin: 12/17/18 07:43 Dose: 5 mg Lorazepam (Ativan) 0.5 mg PO QHS PRN PRN PRN Reason: Insomnia Metformin HCl (Glucophage) 850 mg PO BIDCM [facility] Last Admin: 12/17/18 07:44 Dose: 850 mg Metoprolol Succinate (Toprol Xl (Beta Mally)) 25 mg PO DAILY [facility] Last Admin: 12/17/18 07:43 Dose: 25 mg Nystatin (Mycostatin Powder) 1 applic TOPICAL TID [facility]; Protocol Last Admin: 12/17/18 06:17 Dose: 1 applicatio Ondansetron HCl (Zofran Odt) 4 mg PO Q8H PRN PRN PRN Reason: nausea and vomitting Last Admin: 12/08/18 22:29 Dose: 4 mg Pantoprazole Sodium (Protonix) 20 mg PO DAILY [facility] Last Admin: 12/17/18 07:45 Dose: 20 mg Medical Necessity - Tobacco Use Smoking Status: Never smoker Assessment/Plan This is a 73 years old female patient admitted to the inpatient rehabilitation unit after she suffered acute traumatic left femur fracture status post open reduction internal fixation in [facility] by Dr. Ruggiero admitted for acute rehab. 1. Acute diarrhea, C. difficile ruled out, likely secondary to metformin side effect. Patient did not have bowel movement since Tuesday. Patient tolerated 500 mg metformin twice daily for 2 days. On 850 mg twice daily and continue. CBC and BMP tomorrow morning. 2. Hypokalemia, resolved. K3.5. Potassium replaced. 3. Acute traumatic left femur fracture, status post open reduction and internal fixation, therapy ongoing 4. CAD status post CABG, on aspirin, statins, metoprolol and lisinopril. 5. Type 2 diabetes mellitus, BS slightly uncontrolled, on ADA diet, Accu-Cheks, insulin sliding scale, Metformin 850 mg twice daily. Sugar elevated. Patient is tolerating metformin. Lantus insulin increased to 15 units subcu at breakfast and 25 units at bedtime daily. Titrate insulin according to the Accu-Cheks. 6. Hypertension, controlled, on lisinopril and metoprolol. 7. Hyperlipidemia, statins. 8. DVT prophylaxis - Lovenox SC Laboratory Results 12/16/18 17:11: POC Glucose 93 12/16/18 21:04: POC Glucose 146 H 12/17/18 06:24: POC Glucose 139 H 12/17/18 11:11: POC Glucose 211 H Code Visit Inpatient E&M: 26466 Subs Hosp L2
[2018-12-17 16:41] LABS: Bedside Glucose 99 mg/dL (70-110)
[2018-12-17 19:17] VITALS: BP 120/55; PULSE 87; RESP 16; TEMP 36.7; O2SAT 97
[2018-12-17 20:51] LABS: Bedside Glucose 112 mg/dL (70-110)
[2018-12-17] MEDS: Atorvastatin Calcium 40 MG Tablet PO (20:56)
[2018-12-17] MEDS: Acetaminophen 325 MG Tablet 650 MG PO (20:56)
[2018-12-17 22:00] VITALS: PULSE 87; RESP 16; O2SAT 97
[2018-12-18 05:59] LABS: Absolute Neutrophil Count 6.1 X10^3/uL (2.0-7.7); Basophil# 0.04 X10^3/uL; Basophil% 0.4 % (0-1); Eosinophil# 0.26 X10^3/uL; Eosinophils% 2.9 % (0-5); Hematocrit 30.8 % (37-47); Lymphocyte % 19.7 % (19-41); Mean Corp Hgb Conc 32.5 g/gl (32-36); Mean Corpuscular Hgb 30.4 pg (27.0-32.0); Mean Corpuscular Volume 93.6 fL (81-99); Mean Platelet Vol. 10.1 fl (6.2-12.0); Monocyte# 0.86 X10^3/uL; Monocyte% 9.4 % (0-10); Neutrophil # 6.12 X10^3/uL (2.7-7.7); Neutrophil % 67.2 % (47-70); Platelet Count 386 K/mm3 (150-450); RBC Distribution Width SD 50.4 fl (35.1-43.9); Red Blood Count 3.29 M/mm3 (4.2-5.4); White Blood Count 9.1 K/mm3 (4.4-11.0)
[2018-12-18] MEDS: Nystatin Powder 15gm Bottle 1 APPLIC TOPICAL ×3 (06:08→21:04)
[2018-12-18] MEDS: Enoxaparin 30 MG/0.3 ML Syringe SC (06:09)
[2018-12-18 06:16] LABS: Anion Gap 8 (5-15); BUN 23 mg/dL (7-18); BUN/Creat Ratio 28.1 RATIO (10-20); Calcium,Total 9.1 mg/dL (8.5-10.1); Chloride 108 mmol/L (98-107); Creatinine, Serum 0.82 mg/dL (0.55-1.02); EST Glomerular Filtration Rate 73 mL/min (>60); Est Glom Filt Rate - Afr Amer 88 mL/min (>60); Glucose 113 mg/dL (74-106); Potassium 4.3 mmol/L (3.5-5.1); Sodium Level 142 mmol/L (136-145)
[2018-12-18 06:44] LABS: POSITIVE COUNT NO; POSITIVE DIFFERENTIAL NO; POSITIVE MORPHOLOGY NO
[2018-12-18 07:00] LABS: Bedside Glucose 117 mg/dL (70-110)
[2018-12-18 07:50] VITALS: BP 126/63; PULSE 91; RESP 16; TEMP 36.6; O2SAT 95
[2018-12-18 07:53] VITALS: BP 126/63; PULSE 91
[2018-12-18] MEDS: Lisinopril 5 MG Tablet PO (07:53)
[2018-12-18] MEDS: Pantoprazole Sodium 20 MG Tablet PO (07:53)
[2018-12-18] MEDS: Aspirin E.C. 81 MG Tablet PO (07:53)
[2018-12-18] MEDS: Metoprolol(XL)Succ 25 MG Tablet PO (07:53)
[2018-12-18] MEDS: Citalopram 40 MG TABLET PO (07:53)
[2018-12-18] MEDS: HYDROcodone Bitartrate/Apap 5/325 Tablet PO ×2 (08:02→14:56)
--- NOTE | 2018-12-18 10:22 | PCM.PN.NEU ---
Subjective: Per nursing no issues overnight. Per patient she is tolerating therapies well and her pain is well controlled. Denies any further diarrhea from Metformin and is tolerating the dose. Denied further questions or concerns. 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: Incision - SC[employer]ENDANT, without redness or drng., Excoriated - mild under breasts and groin Musculoskeletal: No Tenderness to Palpation of Joints or Extremities, Tenderness - minimal to left upper thigh Neurological: Cranial nerves II-XII grossly intact, Deep Tendon Reflexes 2+/4 and Symmetrical, Neuro grossly intact, Motor Exam 5/5 strength throughout Psych/Mental Status: Normal Affect, Appropriate, Alert and oriented to time, place, person, mood and affect Vital Signs Temp Pulse Resp BP Pulse Ox 97.8 F 91 16 126/63 H 95 12/18/18 07:50 12/18/18 07:53 12/18/18 07:50 12/18/18 07:53 12/18/18 07:50 Oxygen Delivery Method Room Air Weight: 105.415 kg Body Mass Index (BMI) 42.7 Intake and Output for Last 24 Hours 12/16/18 12/17/18 12/18/18 23:59 23:59 23:59 Intake Total 700 / 700 65 / 65 Output Total 250 / 250 Balance 450 / 450 65 / 65 Laboratory Tests Past 24 Hrs 12/18/18 12/18/18 05:15 05:15 WBC 9.1 RBC 3.29 L Hgb 10.0 L Hct 30.8 L MCV 93.6 MCH 30.4 MCHC 32.5 RDW 15.0 H RDW Differential 50.4 H Plt Count 386 MPV 10.1 Immature Gran % (Auto) 0.400 Neut % (Auto) 67.2 Lymph % (Auto) 19.7 [place] % (Auto) 9.4 Eos % (Auto) 2.9 Baso % (Auto) 0.4 Absolute Neuts (auto) 6.1 Absolute Lymphs (auto) 1.80 Total Counted Not Reportable Sodium 142 Potassium 4.3 Chloride 108 H Carbon Dioxide 26.0 Anion Gap 8 BUN 23 H Creatinine 0.82 Estim Creat Clear Calc 51.30 Est GFR (MDRD) Af Amer 88 Est GFR (MDRD) Non-Af 73 BUN/Creatinine Ratio 28.1 H Glucose 113 H Calcium 9.1 POC Glucose 12/18/18 12/17/18 12/17/18 06:47 20:36 16:24 POC Glucose 117 H 112 H 99 12/17/18 11:11 POC Glucose 211 H Medical Necessity - Tobacco Use Smoking Status: Never smoker Assessment/Plan The patient is a 73 year old F with a H hypertension, diabetes, hyperlipidemia, GERD, depression, diabetes type 2, CAD, morbid obesity admitted to inpatient rehab on December 08, 2018 for debility secondary to status post left femur ORIF, for greater of 3 hours of therapy daily with a goal of returning back home at or near her prior level of functional dependence. On December 01, 2018 patient fell in her kitchen while putting the dishes away, patient did not hit head or no LOC. She was admitted to [facility] x-ray results of the left femur and knee demonstrated a community distal femur fracture extending from the diaphysis down to the metaphyseal region and the CT of the left knee re-demonstrates comminuted distal femur fracture, there does not appear to be an intra-articular extension. Prior to surgery cardiology was consulted due to patient's known coronary artery disease status post CABG in 1996. An EKG was done and showed an evidence of an inferior posterior [place], likely old. Troponin level and a repeat EKG was completed which did not show any dynamic changes. Patient was cleared for surgery and on December 04, 2018 Dr. Ruggiero performed open treatment left supracondylar femur fracture with plate and screw fixation. Post-op patient became nauseated and vomiting, anti-emetics and bland diet was ordered an x-ray of abdomen 2 views ordered, impression: findings are most compatible with mildly dynamic ileus and on December 07, 2018 chest x-ray 1 view ordered impression: no acute radiographic findings. Patient lives in a 1 level first-floor set up apartment with spouse and was independent with driving, mobility and ADLs prior to her surgery. Plan - PT for mobility - OT for ADLs - Bowel protocol - Analgesics as needed - Fall precautions - DVT prophylaxis lovenox 30 mg SQ daily as directed by ortho, knee high teds and SCDs to RLE only d/t LLE sumanth wrap and brace - S/P left femur ORIF change drsg to incision daily with DSD and prn, ice prn, PWB 25 % ROM 0-60 degrees in bed with knee immobilizer off, wear knee immobilizer for transfer and when out of bed. - HTN on metoprolol, lisinopril - GERD on protonix 20 mg - DM type 2 on levemir, and humalog S.C., monitor accu-checks AC & HS, metformin 850 mg bid - follow hospitalist recommendations for management - Depression on celexa - Hyperlipidemia on lipitor - CAD s/p CABG on aspirin, metoprolol and lisinopril - Nausea: zofran prn (EKG prior to hospitalization and was given prior to this admission with celexa) - Morbid obesity BMI 41.2 discussed wt loss, diet, and exercise benefits - Excoriation under breasts and groin- nystatin powder improving - Further medical management per hospitalist recommendation, hospitalist consult - F/U with PCP and Orthopedics
--- NOTE | 2018-12-18 10:26 | PN.NEURO_ITS ---
Subjective: Per nursing no issues overnight. Per patient she is tolerating therapies well and her pain is well controlled. Denies any further diarrhea from Metformin and is tolerating the dose. Denied further questions or concerns. 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415 kg Body Mass Index (BMI) 42.7 Intake and Output for Last 24 Hours 12/16/18 12/17/18 12/18/18 23:59 23:59 23:59 Intake Total 700 / 700 65 / 65 Output Total 250 / 250 Balance 450 / 450 65 / 65 Laboratory Tests Past 24 Hrs 12/18/18 12/18/18 05:15 05:15 WBC 9.1 RBC 3.29 L Hgb 10.0 L Hct 30.8 L MCV 93.6 MCH 30.4 MCHC 32.5 RDW 15.0 H RDW Differential 50.4 H Plt Count 386 MPV 10.1 Immature Gran % (Auto) 0.400 Neut % (Auto) 67.2 Lymph % (Auto) 19.7 [place] % (Auto) 9.4 Eos % (Auto) 2.9 Baso % (Auto) 0.4 Absolute Neuts (auto) 6.1 Absolute Lymphs (auto) 1.80 Total Counted Not Reportable Sodium 142 Potassium 4.3 Chloride 108 H Carbon Dioxide 26.0 Anion Gap 8 BUN 23 H Creatinine 0.82 Estim Creat Clear Calc 51.30 Est GFR (MDRD) Af Amer 88 Est GFR (MDRD) Non-Af 73 BUN/Creatinine Ratio 28.1 H Glucose 113 H Calcium 9.1 POC Glucose 12/18/18 12/17/18 12/17/18 06:47 20:36 16:24 POC Glucose 117 H 112 H 99 12/17/18 11:11 POC Glucose 211 H Medical Necessity - Tobacco Use Smoking Status: Never smoker Assessment/Plan The patient is a 73 year old F with a H hypertension, diabetes, hyperlipid emia, GERD, depression, diabetes type 2, CAD, morbid obesity admitted to inpatient rehab on December 08, 2018 for debility secondary to status post left femur ORIF, for greater of 3 hours of therapy daily with a goal of returning back home at or near her prior level of functional dependence. On December 01, 2018 patient fell in her kitchen while putting the dishes away, patient did not hit head or no LOC. She was admitted to [facility] x-ray results of the left femur and knee demonstrated a community distal femur fracture extending from the diaphysis down to the metaphyseal region and the CT of the left knee re-demonstrates comminuted distal femur fracture, there does not appear to be an intra-articular extension. Prior to surgery cardiology was consulted due to patient's known coronary artery disease status post CABG in 1996. An EKG was done and showed an evidence of an inferior posterior MS, likely old. Troponin level and a repeat EKG was completed which did not show any dynamic changes. Patient was cleared for surgery and on December 04, 2018 Dr. Ruggiero performed open treatment left supracondylar femur fracture with plate and screw fixation. Post-op patient became nauseated and vomiting, anti-emetics and bland diet was ordered an x-ray of abdomen 2 views ordered, impression: findings are most compatible with mildly dynamic ileus and on December 07, 2018 chest x-ray 1 view ordered impression: no acute radiographic findings. Patient lives in a 1 level first-floor set up apartment with spouse and was independent with driving, mobility and ADLs prior to her surgery. Plan - PT for mobility - OT for ADLs - Bowel protocol - Analgesics as needed - Fall precautions - DVT prophylaxis lovenox 30 mg SQ daily as directed by ortho, knee high teds and SCDs to RLE only d/t LLE sumanth wrap and brace - S/P left femur ORIF change drsg to incision daily with DSD and prn, ice prn, PWB 25 % ROM 0-60 degrees in bed with knee immobilizer off, wear knee immobilizer for transfer and when out of bed. - HTN on metoprolol, lisinopril - GERD on protonix 20 mg - DM type 2 on levemir, and humalog S.C., monitor accu-checks AC & HS, metformin 850 mg bid - follow hospitalist recommendations for management - Depression on celexa - Hyperlipidemia on lipitor - CAD s/p CABG on aspirin, metoprolol and lisinopril - Nausea: zofran prn (EKG prior to hospitalization and was given prior to this admission with celexa) - Morbid obesity BMI 41.2 discussed wt loss, diet, and exercise benefits - Excoriation under breasts and groin- nystatin powder improving - Further medical management per hospitalist recommendation, hospitalist consult - F/U with PCP and Orthopedics
[2018-12-18 11:26] LABS: Bedside Glucose 165 mg/dL (70-110)
[2018-12-18] MEDS: Insulin Lispro 100 UNIT/ML INSULN.PEN SC (11:45)
[2018-12-18 16:36] LABS: Bedside Glucose 131 mg/dL (70-110)
--- NOTE | 2018-12-18 18:09 | NURSING ---
reviewed and agree with MEDIA PROFESSIONAL's FIMS and charting
[2018-12-18 19:18] VITALS: BP 130/64; PULSE 92; RESP 16; TEMP 36.8; O2SAT 95
[2018-12-18] MEDS: Atorvastatin Calcium 40 MG Tablet PO (21:04)
[2018-12-18 21:41] LABS: Bedside Glucose 115 mg/dL (70-110)
[2018-12-18 22:00] VITALS: PULSE 92; RESP 16; O2SAT 95
[2018-12-19] MEDS: Nystatin Powder 15gm Bottle 1 APPLIC TOPICAL ×3 (05:10→20:19)
[2018-12-19] MEDS: Enoxaparin 30 MG/0.3 ML Syringe SC (05:38)
[2018-12-19] MEDS: Acetaminophen 325 MG Tablet 650 MG PO ×2 (05:40→14:25)
[2018-12-19 06:51] LABS: Bedside Glucose 115 mg/dL (70-110)
[2018-12-19 07:05] VITALS: BP 125/69; PULSE 93; RESP 18; TEMP 36.7; O2SAT 96
[2018-12-19] MEDS: Aspirin E.C. 81 MG Tablet PO (07:58)
[2018-12-19 07:59] VITALS: BP 125/69; PULSE 93
[2018-12-19] MEDS: Lisinopril 5 MG Tablet PO (07:59)
[2018-12-19] MEDS: Pantoprazole Sodium 20 MG Tablet PO (07:59)
[2018-12-19] MEDS: Citalopram 40 MG TABLET PO (07:59)
[2018-12-19] MEDS: Metoprolol(XL)Succ 25 MG Tablet PO (07:59)
[2018-12-19 11:26] LABS: Bedside Glucose 154 mg/dL (70-110)
[2018-12-19] MEDS: Insulin Lispro 100 UNIT/ML INSULN.PEN SC ×2 (11:54→21:03)
--- NOTE | 2018-12-19 12:42 | PN.NEURO_ITS ---
Subjective: Per nursing no issues overnight. Patient states she is tolerating therapies well. Denies further questions or concerns. 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 Musculoskeletal: No Tenderness to Palpation of Joints or Extremities Neurological: Cranial nerves II-XII grossly intact, Deep Tendon Reflexes 2+/4 and Symmetrical, Neuro grossly intact, Motor Exam 5/5 strength throughout Psych/Mental Status: Normal Affect, Appropriate, Alert and oriented to time, place, person, mood and affect Vital Signs Temp Pulse Resp BP Pulse Ox 98.0 F 93 18 125/69 H 96 12/19/18 07:05 12/19/18 07:59 12/19/18 07:05 12/19/18 07:59 12/19/18 07:05 Oxygen Delivery Method Room Air Weight: 105.415 kg Body Mass Index (BMI) 42.7 Intake and Output for Last 24 Hours 12/17/18 12/18/18 12/19/18 23:59 23:59 23:59 Intake Total 65 / 65 200 / 200 0 / 0 Balance 65 / 65 200 / 200 0 / 0 POC Glucose 12/19/18 12/19/18 12/18/18 11:09 06:30 21:19 POC Glucose 154 H 115 H 115 H 12/18/18 16:22 POC Glucose 131 H Medical Necessity - Tobacco Use Smoking Status: Never smoker Assessment/Plan The patient is a 73 year old F with a H hypertension, diabetes, hyperlipidemia, GERD, depression, diabetes type 2, CAD, morbid obesity admitted to inpatient rehab on December 08, 2018 for debility secondary to status post left femur ORIF, for greater of 3 hours of therapy daily with a goal of returning back home at or near her prior level of functional dependence. On December 01, 2018 patient fell in her kitchen while putting the dishes away, patient did not hit head or no LOC. She was admitted to [facility] x-ray results of the left femur and knee demonstrated a community distal femur fracture extending from the diaphysis down to the metaphyseal region and the CT of the left knee re-demonstrates comminuted distal femur fracture, there does not appear to be an intra-articular extension. Prior to surgery cardiology was consulted due to patient's known coronary artery disease status post CABG in 1996. An EKG was done and showed an evidence of an inferior posterior MA, likely old. Troponin level and a repeat EKG was completed which did not show any dynamic changes. Patient was cleared for surgery and on December 04, 2018 Dr. Ruggiero performed open treatment left supracondylar femur fracture with plate and screw fixation. Post-op patient became nauseated and vomiting, anti-emetics and bland diet was ordered an x-ray of abdomen 2 views ordered, impression: findings are most compatible with mildly dynamic ileus and on December 07, 2018 chest x-ray 1 view ordered impression: no acute radiographic findings. Patient lives in a 1 level first-floor set up apartment with spouse and was independent with driving, mobility and ADLs prior to her surgery. Plan - PT for mobility - OT for ADLs - Bowel protocol - Analgesics as needed - Fall precautions - DVT prophylaxis lovenox 30 mg SQ daily as directed by ortho, knee high teds and SCDs to RLE only d/t LLE sumanth wrap and brace - S/P left femur ORIF ice prn, PWB 25 % ROM 0-60 degrees in bed with knee immobilizer off, wear knee immobilizer for transfer and when out of bed. - HTN on metoprolol, lisinopril - GERD on protonix 20 mg - DM type 2 on levemir, and humalog S.C., monitor accu-checks AC & HS, metformin 850 mg bid - follow hospitalist recommendations for management - Depression on celexa - Hyperlipidemia on lipitor - CAD s/p CABG on aspirin, metoprolol and lisinopril - Nausea: zofran prn (EKG prior to hospitalization and was given prior to this admission with celexa) - Morbid obesity BMI 41.2 discussed wt loss, diet, and exercise benefits - Excoriation under groin- nystatin powder improving Under breasts healed - Further medical management per hospitalist recommendation, hospitalist consult - F/U with PCP and Orthopedics
--- NOTE | 2018-12-19 13:07 | CASEMGMT ---
Social Work Second call placed to [facility]. Information given to Gisselle for referral for [employer] for both pt and her . Gisselle states [facility] will contact pt dgt Michelle Light [phone] to set up an appointment to meet and assess for services. OBDULIA Womack
[2018-12-19 16:20] LABS: Bedside Glucose 119 mg/dL (70-110)
[2018-12-19] MEDS: Loperamide 2 MG Capsule PO (17:04)
[2018-12-19 19:34] VITALS: BP 130/62; PULSE 69; RESP 18; TEMP 36.6; O2SAT 96
[2018-12-19] MEDS: Atorvastatin Calcium 40 MG Tablet PO (20:19)
[2018-12-19 20:30] LABS: Bedside Glucose 251 mg/dL (70-110)
[2018-12-19 22:00] VITALS: PULSE 69; RESP 18; O2SAT 96
[2018-12-20] MEDS: Enoxaparin 30 MG/0.3 ML Syringe SC (05:45)
[2018-12-20] MEDS: Nystatin Powder 15gm Bottle 1 APPLIC TOPICAL ×3 (05:50→22:20)
[2018-12-20 06:31] LABS: Bedside Glucose 193 mg/dL (70-110)
[2018-12-20 07:05] VITALS: BP 114/60; PULSE 96; RESP 18; TEMP 36.7; O2SAT 94
[2018-12-20 07:47] VITALS: BP 114/60; PULSE 96
[2018-12-20] MEDS: Lisinopril 5 MG Tablet PO (07:47)
[2018-12-20] MEDS: Citalopram 40 MG TABLET PO (07:47)
[2018-12-20] MEDS: Aspirin E.C. 81 MG Tablet PO (07:47)
[2018-12-20] MEDS: Pantoprazole Sodium 20 MG Tablet PO (07:47)
[2018-12-20] MEDS: Metoprolol(XL)Succ 25 MG Tablet PO (07:47)
[2018-12-20] MEDS: Acetaminophen 325 MG Tablet 650 MG PO (07:48)
[2018-12-20] MEDS: Insulin Lispro 100 UNIT/ML INSULN.PEN SC ×2 (07:48→12:18)
--- NOTE | 2018-12-20 09:10 | PN.NEURO_ITS ---
<Yvrose Richards S - Last Filed: 12/20/18 09:11> Subjective: Per nursing no issues overnight. Patient continues to tolerate therapy and pain is well controlled. Denies further questions or concerns. 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 Musculoskeletal: No Tenderness to Palpation of Joints or Extremities Neurological: Cranial nerves II-XII grossly intact, Deep Tendon Reflexes 2+/4 and Symmetrical, Neuro grossly intact, Motor Exam 5/5 strength throughout Psych/Mental Status: Normal Affect, Appropriate, Alert and oriented to time, place, person, mood and affect Vital Signs Temp Pulse Resp BP Pulse Ox 98.0 F 96 18 114/60 94 12/20/18 07:05 12/20/18 07:47 12/20/18 07:05 12/20/18 07:47 12/20/18 07:05 Oxygen Delivery Method Room Air Weight: 105.415 kg Body Mass Index (BMI) 42.7 Intake and Output for Last 24 Hours 12/18/18 12/19/18 12/20/18 23:59 23:59 23:59 Intake Total 200 / 200 480 / 480 360 / 360 Balance 200 / 200 480 / 480 360 / 360 POC Glucose 12/20/18 12/19/18 12/19/18 06:27 20:25 16:03 POC Glucose 193 H 251 H 119 H 12/19/18 11:09 POC Glucose 154 H Medical Necessity - Tobacco Use Smoking Status: Never smoker Assessment/Plan The patient is a 73 year old F with a H hypertension, diabetes, hyperlipidemia, GERD, depression, diabetes type 2, CAD, morbid obesity admitted to inpatient rehab on December 08, 2018 for debility secondary to status post left femur ORIF, for greater of 3 hours of therapy daily with a goal of returning back home at or near her prior level of functional dependence. On December 01, 2018 patient fell in her kitchen while putting the dishes away, patient did not hit head or no LOC. She was admitted to [facility] x-ray results of the left femur and knee demonstrated a community distal femur fracture extending from the diaphysis down to the metaphyseal region and the CT of the left knee re-demonstrates comminuted distal femur fracture, there does not appear to be an intra-articular extension. Prior to surgery cardiology was consulted due to patient's known coronary artery disease status post CABG in 1996. An EKG was done and showed an evidence of an inferior posterior [place], likely old. Troponin level and a repeat EKG was completed which did not show any dynamic changes. Patient was cleared for surgery and on December 04, 2018 Dr. Ruggiero performed open treatment left supracondylar femur fracture with plate and screw fixation. Post-op patient became nauseated and vomiting, anti-emetics and bland diet was ordered an x-ray of abdomen 2 views ordered, impression: findings are most compatible with mildly dynamic ileus and on December 07, 2018 chest x-ray 1 view ordered impression: no acute radiographic findings. Patient lives in a 1 level first-floor set up apartment with spouse and was independent with driving, mobility and ADLs prior to her surgery. Plan - PT for mobility - OT for ADLs - Bowel protocol - Analgesics as needed - Fall precautions - DVT prophylaxis lovenox 30 mg SQ daily as directed by ortho, knee high teds and SCDs to RLE only d/t LLE sumanth wrap and brace - S/P left femur ORIF ice prn, PWB 25 % ROM 0-60 degrees in bed with knee immobilizer off, wear knee immobilizer for transfer and when out of bed. - HTN on metoprolol, lisinopril - GERD on protonix 20 mg - DM type 2 on levemir, and humalog S.C., monitor accu-checks AC & HS, metformin 850 mg bid - follow hospitalist recommendations for management - Depression on celexa - Hyperlipidemia on lipitor - CAD s/p CABG on aspirin, metoprolol and lisinopril - Nausea: zofran prn (EKG prior to hospitalization and was given prior to this admission with celexa) - Morbid obesity BMI 41.2 discussed wt loss, diet, and exercise benefits - Excoriation under groin- nystatin powder improving Under breasts healed - Further medical management per hospitalist recommendation, hospitalist consult - F/U with PCP and Orthopedics <Tristan Bauer - Last Filed: 12/20/18 12:09> - Physical Exam Vital Signs Temp Pulse Resp BP Pulse Ox 36.7 C 96 18 114/60 94 12/20/18 07:05 12/20/18 07:47 12/20/18 07:05 12/20/18 07:47 12/20/18 07:05 Oxygen Delivery Method Room Air Weight: 102 kg Body Mass Index (BMI) 42.7 Intake and Output for Last 24 Hours 12/18/18 12/19/18 12/20/18 23:59 23:59 23:59 Intake Total 200 / 200 480 / 480 360 / 360 Balance 200 / 200 480 / 480 360 / 360 POC Glucose 12/20/18 12/19/18 12/19/18 06:27 20:25 16:03 POC Glucose 193 H 251 H 119 H Assessment/Plan Interviewed and examined. Agree with PA notes and plan as above. Patient denies significant pain, tolerating therapies, no insomnia, no GI or complaints. Plan as above.
[2018-12-20 13:02] LABS: Bedside Glucose 184 mg/dL (70-110)
[2018-12-20 16:56] LABS: Bedside Glucose 127 mg/dL (70-110)
[2018-12-20 19:35] VITALS: BP 136/59; PULSE 94; RESP 18; TEMP 36.9; O2SAT 99
[2018-12-20] MEDS: Atorvastatin Calcium 40 MG Tablet PO (22:19)
[2018-12-20 22:30] LABS: Bedside Glucose 131 mg/dL (70-110)
[2018-12-21] MEDS: Nystatin Powder 15gm Bottle 1 APPLIC TOPICAL ×3 (05:33→21:31)
[2018-12-21] MEDS: Enoxaparin 30 MG/0.3 ML Syringe SC (05:35)
[2018-12-21 07:01] LABS: Bedside Glucose 168 mg/dL (70-110)
[2018-12-21] MEDS: Insulin Lispro 100 UNIT/ML INSULN.PEN SC ×2 (07:46→12:23)
[2018-12-21] MEDS: Citalopram 40 MG TABLET PO (07:47)
[2018-12-21] MEDS: Aspirin E.C. 81 MG Tablet PO (07:47)
[2018-12-21] MEDS: Lisinopril 5 MG Tablet PO (07:48)
[2018-12-21 07:49] VITALS: PULSE 89
[2018-12-21] MEDS: Pantoprazole Sodium 20 MG Tablet PO (07:49)
[2018-12-21] MEDS: Metoprolol(XL)Succ 25 MG Tablet PO (07:49)
[2018-12-21 10:00] VITALS: BP 103/57; PULSE 89; RESP 18; TEMP 36.6; O2SAT 95
--- NOTE | 2018-12-21 10:23 | CASEMGMT ---
Team meeting held today with pt and daughter present. Pt is receiving PT/OT and progressing well. Pt and dgt feel pt is ready to return home at this time. D/C set for tomorrow. Pt will be returning home with her and children who are very involved will be supportive and assist as needed. Therapy is recommending home health PT/OT. Pt dgt stating pt has wheelchair and all needed DME. SW to follow for d/c planning. OBDULIA Womack
--- NOTE | 2018-12-21 10:50 | PN.NEURO_ITS ---
Subjective: Per nursing no issues overnight. Team meeting held today. From the standpoint of therapies patient has increased in strength and mobility and patient would like to go home on Tuesday12/22/2018. Team and daughter agreeable. Patient will have home OT. Patient denied further questions or concerns. 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 Musculoskeletal: No Tenderness to Palpation of Joints or Extremities Neurological: Cranial nerves II-XII grossly intact, Deep Tendon Reflexes 2+/4 and Symmetrical, Neuro grossly intact, Motor Exam 5/5 strength throughout Psych/Mental Status: Normal Affect, Appropriate, Alert and oriented to time, place, person, mood and affect Vital Signs Temp Pulse Resp BP Pulse Ox 98.4 F 89 18 136/59 H 99 12/20/18 19:35 12/21/18 07:49 12/20/18 19:35 12/20/18 19:35 12/20/18 19:35 Oxygen Delivery Method Room Air Weight: 102 kg Body Mass Index (BMI) 42.7 Intake and Output for Last 24 Hours 12/19/18 12/20/18 12/21/18 23:59 23:59 23:59 Intake Total 480 / 480 360 / 360 Balance 480 / 480 360 / 360 POC Glucose 12/21/18 12/20/18 12/20/18 06:54 22:17 16:41 POC Glucose 168 H 131 H 127 H 12/20/18 11:31 POC Glucose 184 H Medical Necessity - Tobacco Use Smoking Status: Never smoker Assessment/Plan The patient is a 73 year old F with a H hypertension, diabetes, hyperlipidemia, GERD, depression, diabetes type 2, CAD, morbid obesity admitted to inpatient rehab on December 08, 2018 for debility secondary to status post left femur ORIF, for greater of 3 hours of therapy daily with a goal of returning back home at or near her prior level of functional dependence. On December 01, 2018 patient fell in her kitchen while putting the dishes away, patient did not hit head or no LOC. She was admitted to [facility] x-ray results of the left femur and knee demonstrated a community distal femur fracture extending from the diaphysis down to the metaphyseal region and the CT of the left knee re-demonstrates comminuted distal femur fracture, there does not appear to be an intra-articular extension. Prior to surgery cardiology was consulted due to patient's known coronary artery disease status post CABG in 1996. An EKG was done and showed an evidence of an inferior posterior [place], likely old. Troponin level and a repeat EKG was completed which did not show any dynamic changes. Patient was cleared for surgery and on December 04, 2018 Dr. Ruggiero performed open treatment left supracondylar femur fracture with plate and screw fixation. Post-op patient became nauseated and vomiting, anti-emetics and bland diet was ordered an x-ray of abdomen 2 views ordered, impression: findings are most compatible with mildly dynamic ileus and on December 07, 2018 chest x-ray 1 view ordered impression: no acute radiographic findings. Patient lives in a 1 level first-floor set up apartment with spouse and was independent with driving, mobility and ADLs prior to her surgery. Plan - PT for mobility - OT for ADLs - Bowel protocol - Analgesics as needed - Fall precautions - DVT prophylaxis lovenox 30 mg SQ daily as directed by ortho, knee high teds and SCDs to RLE only d/t LLE sumanth wrap and brace - S/P left femur ORIF ice prn, PWB 25 % ROM 0-60 degrees in bed with knee immobilizer off, wear knee immobilizer for transfer and when out of bed. - HTN on metoprolol, lisinopril - GERD on protonix 20 mg - DM type 2 on levemir, and humalog S.C., monitor accu-checks AC & HS, metformin 850 mg bid - follow hospitalist recommendations for management - Depression on celexa - Hyperlipidemia on lipitor - CAD s/p CABG on aspirin, metoprolol and lisinopril - Nausea: zofran prn (EKG prior to hospitalization and was given prior to this admission with celexa) - Morbid obesity BMI 41.2 discussed wt loss, diet, and exercise benefits - Excoriation under groin- nystatin powder improving Under breasts healed - Further medical management per hospitalist recommendation, hospitalist consult - F/U with PCP and Orthopedics
[2018-12-21 12:15] LABS: Bedside Glucose 211 mg/dL (70-110)
--- NOTE | 2018-12-21 15:14 | DCINST_ITS ---
- Discharge Diagnoses Current Active Problems: Current Active and Chronic Problems (Last Updated 12/08/18 @ 20:16 by IVETT IveyC) Status post coronary artery bypass graft (Chronic) Type 2 diabetes mellitus (Chronic) Hyperlipidemia (Chronic) Reason(s) for Visit for Discharge Instructions: Debility secondary to Left femur ORIF You will use the following diet at home:: Calorie/Carbohydrate Controlled (specify 1200, 1400, etc) - 1800 calorie, Cardiac Your food should be the consistency of: Regular Your liquids should be the consistency of: Regular/Thin Discharge Activity: May Not Drive, May Shower, - - wear brace to Left lower extremity when Out of bed Weight Bearing Status: Partial weight bearing - 25% to Left lower extremity Call your doctor if your incision/area has: Continuous Slow Oozing, Sudden Increased Bleeding, Increased Pain/ Swelling, Increased Redness, Foul Smelling Discharge, Swelling at the incision site Call your doctor if you observe: Fever of 101 or Higher, Coldness, Increased Pain, Numbness or Tingling, Change in Color, Inability to urinate, Inability to have a bowel movement, Shortness of breath, Dizziness, Fainting spells, Swelling in the ankles, Chest pain, Prolonged hiccoughing, Increased palpitations (irregular heartbeat) Cleanse incision/area with: Soap & Water Allergies/Adverse Reactions: Allergies No Known Allergies Allergy (Verified 12/08/18 16:59) Medications to take at Discharge Citalopram [Celexa] 40 mg PO DAILY 12/08/18 Acetaminophen [Tylenol Tablet] 650 mg PO Q6H PRN PRN tablet 12/21/18 Aspirin E.C. [Ecotrin] 81 mg PO DAILY@0800 tablet 12/21/18 Atorvastatin Calcium [Lipitor] 40 mg PO QHS tablet 12/21/18 Insulin Glargine [Lantus SoloStar Pen] 15 units SC BREAKFAST #1 pen 12/21/18 Insulin Glargine [Lantus SoloStar Pen] 25 units SC QHS #1 pen 12/21/18 Lisinopril [Zestril] 5 mg PO DAILY tablet 12/21/18 Metformin HCl [Glucophage] 850 mg PO BIDCM #60 tablet 12/21/18 Metoprolol(XL)Succ [Toprol Xl (Beta Mally)] 25 mg PO DAILY tablet 12/21/18 Pantoprazole Sodium [Protonix] 20 mg PO DAILY #30 tablet 12/21/18 The following prescriptions were given: Insulin Glargine [Lantus SoloStar Pen] 15 units SC BREAKFAST #1 pen Insulin Glargine [Lantus SoloStar Pen] 25 units SC QHS #1 pen Pantoprazole Sodium [Protonix] 20 mg PO DAILY #30 tablet Metformin HCl [Glucophage] 850 mg PO BIDCM #60 tablet Test Results: Test results from this visit will be discussed in further detail at your follow- up appointment, if applicable. Please Follow Up With: Primary Care Physician Please Follow Up With: Orthopedic Surgeon Please Follow Up With: Home Health Occupational Therapist Proposed Discharge Date: 12/22/18
--- NOTE | 2018-12-21 15:26 | PCM.RU.DC ---
Rehab Discharge Summary DATE OF ADMISSION: 12/08/18 DATE OF DISCHARGE: 12/22/2018 - Rehab Diagnosis Debility secondary to Left femur ORIF. Subjective: Per patient ready to be discharged home tomorrow on Tuesday12/22/2018. Patient verbalized understanding to follow up with PCP, Orthopedic surgeon and will have Home Health OT. Patient denies further questions or concerns. 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: Incision - RISSA, without redness or drng. Musculoskeletal: No Tenderness to Palpation of Joints or Extremities Neurological: Cranial nerves II-XII grossly intact, Deep Tendon Reflexes 2+/4 and Symmetrical, Neuro grossly intact, Motor Exam 5/5 strength throughout Psych/Mental Status: Normal Affect, Appropriate, Alert and oriented to time, place, person, mood and affect Vital Signs Temp Pulse Resp BP Pulse Ox 97.9 F 89 18 103/57 L 95 12/21/18 10:00 12/21/18 10:00 12/21/18 10:00 12/21/18 10:00 12/21/18 10:00 Oxygen Delivery Method Room Air Weight: 102 kg Body Mass Index (BMI) 42.7 Intake and Output for Last 24 Hours 12/19/18 12/20/18 12/21/18 23:59 23:59 23:59 Intake Total 480 / 480 360 / 360 Balance 480 / 480 360 / 360 POC Glucose 12/21/18 12/21/18 12/20/18 11:12 06:54 22:17 POC Glucose 211 H 168 H 131 H 12/20/18 16:41 POC Glucose 127 H Discharge Diet: Low fat/ Low Cholesterol, 1800 Calorie Control Diet Discharge Activity: May Not Drive, May Shower, Use Walker, - - wear brace to Left lower extremity when Out of bed Weight Bearing Status: Partial weight bearing - 25% to Left lower extremity Call your doctor if your incision/area has: Continuous Slow Oozing, Sudden Increased Bleeding, Increased Pain/ Swelling, Increased Redness, Foul Smelling Discharge, Swelling at the incision site Call your doctor if you observe: Fever of 101 or Higher, Coldness, Increased Pain, Numbness or Tingling, Change in Color, Inability to urinate, Inability to have a bowel movement, Shortness of breath, Dizziness, Fainting spells, Swelling in the ankles, Chest pain, Prolonged hiccoughing, Increased palpitations (irregular heartbeat) Cleanse incision/area with: Soap & Water Home Medications: Medications to take at Discharge Citalopram [Celexa] 40 mg PO DAILY 12/08/18 Acetaminophen [Tylenol Tablet] 650 mg PO Q6H PRN PRN tablet 12/21/18 Aspirin E.C. [Ecotrin] 81 mg PO DAILY@0800 tablet 12/21/18 Atorvastatin Calcium [Lipitor] 40 mg PO QHS tablet 12/21/18 Insulin Glargine [Lantus SoloStar Pen] 15 units SC BREAKFAST #1 pen 12/21/18 Insulin Glargine [Lantus SoloStar Pen] 25 units SC QHS #1 pen 12/21/18 Lisinopril [Zestril] 5 mg PO DAILY tablet 12/21/18 Metformin HCl [Glucophage] 850 mg PO BIDCM #60 tablet 12/21/18 Metoprolol(XL)Succ [Toprol Xl (Beta Mally)] 25 mg PO DAILY tablet 12/21/18 Pantoprazole Sodium [Protonix] 20 mg PO DAILY #30 tablet 12/21/18 Following Prescrptions Were Given to Patient: Insulin Glargine [Lantus SoloStar Pen] 15 units SC BREAKFAST #1 pen Insulin Glargine [Lantus SoloStar Pen] 25 units SC QHS #1 pen Pantoprazole Sodium [Protonix] 20 mg PO DAILY #30 tablet Metformin HCl [Glucophage] 850 mg PO BIDCM #60 tablet Please Follow Up With: Primary Care Physician Please Follow Up With: Orthopedic Surgeon Please Follow Up With: Home Health Occupational Therapist Disposition: Home with Home Health Patient Condition:: Stable Rehab Course The patient is a 73 year old F with a H hypertension, diabetes, hyperlipidemia, GERD, depression, diabetes type 2, CAD, morbid obesity admitted to inpatient rehab on December 08, 2018 for debility secondary to status post left femur ORIF, for greater of 3 hours of therapy daily with a goal of returning back home at or near her prior level of functional dependence. On December 01, 2018 patient fell in her kitchen while putting the dishes away, patient did not hit head or no LOC. She was admitted to [facility] x-ray results of the left femur and knee demonstrated a community distal femur fracture extending from the diaphysis down to the metaphyseal region and the CT of the left knee re-demonstrates comminuted distal femur fracture, there does not appear to be an intra-articular extension. Prior to surgery cardiology was consulted due to patient's known coronary artery disease status post CABG in 1996. An EKG was done and showed an evidence of an inferior posterior AR, likely old. Troponin level and a repeat EKG was completed which did not show any dynamic changes. Patient was cleared for surgery and on December 04, 2018 Dr. Ruggiero performed open treatment left supracondylar femur fracture with plate and screw fixation. Post-op patient became nauseated and vomiting, anti-emetics and bland diet was ordered an x-ray of abdomen 2 views ordered, impression: findings are most compatible with mildly dynamic ileus and on December 07, 2018 chest x-ray 1 view ordered impression: no acute radiographic findings. Rehab course uncomplicated. Patient had increased loose stools after restarting Metformin at 2000 mg QHS and stool obtained, negative for C.difficile on 12/09/2018. Metformin was decreased to 850 mg BID, tolerating. Diabetes managed with Lantus and Metformin. Patient lives in a 1 level first-floor set up apartment with spouse and was independent with driving, mobility and ADLs prior to her surgery.Patient being discharged home with Home Health OT on 12/22/2018. Patient has increased strength and mobility. Patient follows PWB 25% to left lower extremity and wears brace with activity. Patient to F/U with PCP and Orthopedic Surgeon. Meaningful Use Info Meaningful Use Diagnoses (Choose all that apply): None applicable
[2018-12-21 17:35] LABS: Bedside Glucose 110 mg/dL (70-110)
[2018-12-21 19:00] VITALS: BP 133/67; PULSE 96; RESP 16; TEMP 36.8; O2SAT 99
[2018-12-21] MEDS: Acetaminophen 325 MG Tablet 650 MG PO (21:29)
[2018-12-21] MEDS: Atorvastatin Calcium 40 MG Tablet PO (21:30)
[2018-12-21 22:01] LABS: Bedside Glucose 114 mg/dL (70-110)
[2018-12-22 06:11] LABS: Bedside Glucose 109 mg/dL (70-110)
[2018-12-22] MEDS: Enoxaparin 30 MG/0.3 ML Syringe SC (06:29)
[2018-12-22] MEDS: Nystatin Powder 15gm Bottle 1 APPLIC TOPICAL (06:29)
[2018-12-22 07:34] VITALS: BP 130/64; PULSE 93; RESP 16; TEMP 36.7; O2SAT 96
[2018-12-22 07:46] VITALS: BP 130/64; PULSE 93
[2018-12-22] MEDS: Citalopram 40 MG TABLET PO (07:46)
[2018-12-22] MEDS: Aspirin E.C. 81 MG Tablet PO (07:46)
[2018-12-22] MEDS: Lisinopril 5 MG Tablet PO (07:46)
[2018-12-22] MEDS: Metoprolol(XL)Succ 25 MG Tablet PO (07:46)
[2018-12-22] MEDS: Pantoprazole Sodium 20 MG Tablet PO (07:46)
--- NOTE | 2018-12-22 10:29 | CASEMGMT ---
Social Work Referral made to [facility] for PT/OT per family and pt request. They are able to accept pt. Pt has needed DME. [facility] Pass[facility] information and phone number given to pt dgt. Family to transport pt home. No further d/c needs. OBDULIA Womack
[2018-12-22 10:42] VITALS: BP 130/64; PULSE 93; RESP 16; TEMP 36.7; O2SAT 96
--- NOTE | 2018-12-22 10:45 | NURSING ---
Discharged to home and patient and family verbalized understanding to instructions and given teaching on Lantus and diabetes.
== END 2018-12-22 10:50 | disposition home health service (06) | DRG 560 ==
PROVIDERS: Internal Medicine; Nurse Practitioner Family; Admitting Provider Psychiatry & Neurology Neurology; Referring Provider Psychiatry & Neurology Neurology; Visit Provider Family Medicine
DX: S72.452D Displaced supracondylar fracture without intracondylar extension of lower end of left femur, subsequent encounter for closed fracture with routine healing (principal); Z68.41 Body mass index [BMI] 40.0-44.9, adult; W19.XXXD Unspecified fall, subsequent encounter; I10 Essential (primary) hypertension; E78.5 Hyperlipidemia, unspecified; E11.9 Type 2 diabetes mellitus without complications; I25.10 Atherosclerotic heart disease of native coronary artery without angina pectoris; Z95.1 Presence of aortocoronary bypass graft; K21.9 Gastro-esophageal reflux disease without esophagitis; F32.9 Major depressive disorder, single episode, unspecified; E66.01 Morbid (severe) obesity due to excess calories; Z71.3 Dietary counseling and surveillance; S20.112A Abrasion of breast, left breast, initial encounter; S20.111A Abrasion of breast, right breast, initial encounter; S30.811A Abrasion of abdominal wall, initial encounter; X58.XXXA Exposure to other specified factors, initial encounter; Y93.9 Activity, unspecified; Y92.129 Unspecified place in nursing home as the place of occurrence of the external cause; Y99.8 Other external cause status
CPT/HCPCS: 36415; 80048; 80053; 82962; 83036; 85025; 87493; 97110; 97116; 97162; 97166; 97530; 97535; 97802; 97803